=== PATIENT | male | born 1955 | race Hispanic/Latino ===

== ENCOUNTER 2018-04-05 12:58 | Inpatient (IN) | payer MEDICARE ==
--- NOTE | 2018-04-05 13:38 | C.PDOC ---
History Of Present Illness 62 y/o male with history of DM, HLD, HTN and [place] with 2 stents presents to ED with c/o cough for 7 days associated with sob and chest pressure. Patient states he saw PMD 6 days ago, was given Augmentin and Cough syrup that has not improved symptoms. Contrary to triage patient denies fever, chills, nausea, vomiting or any other complaints at this time. Time Seen by Provider: 04/05/18 13:16 Chief Complaint (Nursing): Shortness Of Breath History Per: Patient History/Exam Limitations: no limitations Onset/Duration Of Symptoms: Days Current Symptoms Are (Timing): Still Present Past Medical History Reviewed: Historical Data, Nursing Documentation, Vital Signs Vital Signs: Last Vital Signs Temp 98.5 F 04/05/18 13:02 Pulse 106 H 04/05/18 13:02 Resp 18 04/05/18 13:02 BP 135/85 04/05/18 13:02 Pulse Ox 97 04/05/18 15:45 - Medical History PMH: Asthma, HTN, Hypercholesterolemia Surgical History: Coronary Stent (2016) Family History: States: No Known Family Hx - Social History Hx Alcohol Use: No Hx Substance Use: No - Immunization History Hx Tetanus Toxoid Vaccination: Yes Hx Influenza Vaccination: Yes Hx Pneumococcal Vaccination: Yes Review Of Systems Constitutional: Negative for: Fever, Chills Cardiovascular: Positive for: Chest Pain Respiratory: Positive for: Cough, Shortness of Breath Gastrointestinal: Negative for: Nausea, Vomiting Skin: Negative for: Rash Physical Exam - Physical Exam Appears: Non-toxic, No Acute Distress Skin: Warm, Dry, No Rash Head: Atraumatic, Normacephalic Eye(s): bilateral: Normal Inspection Oral Mucosa: Moist Throat: Normal, No Erythema, No Exudate Neck: Supple Cardiovascular: Rhythm Regular Respiratory: No Rales, No Rhonchi, Wheezing Gastrointestinal/Abdominal: Soft, No Tenderness, No Guarding, No Rebound Extremity: Normal ROM, No Pedal Edema, Capillary Refill (<2 seconds) Neurological/Psych: Oriented x3, Normal Speech, Normal Cognition ED Course And Treatment - Laboratory Results Result Diagrams: 04/05/18 14:40 04/05/18 14:40 ECG: Interpreted By Me ECG Rhythm: Sinus Rhythm (nrm intervals, no st or twave abn. ) Rate From EC O2 Sat by Pulse Oximetry: 97 (RA) Pulse Ox Interpretation: Normal Medical Decision Making Medical Decision Making: Assessment: Bronchitis patient with scattered wheeze on exam, breathing treatments administered, patient states he took his medication prior to arrival. elevated blood sugar as well. Discussed with Dr. Doan and will admit to telemetry. Disposition Discussed With .: Víctor Doan Doctor Will See Patient In The: Hospital Counseled Patient/Family Regarding: Studies Performed, Diagnosis - Disposition Disposition: HOSPITALIZED Disposition Time: 15:44 Condition: FAIR - Clinical Impression Clinical Impression: Chest pain, Hyperglycemia, Bronchitis - Scribe Statement The provider has reviewed the documentation as recorded by the Karenibyahaira Judge All medical record entries made by the Campbell were at my direction and personally dictated by me. I have reviewed the chart and agree that the record accurately reflects my personal performance of the history, physical exam, medical decision making, and the department course for this patient. I have also personally directed, reviewed, and agree with the discharge instructions and disposition.
[2018-04-05] MEDS ORDERED: Albuterol-Ipratrop 3 mg / 0.5 (3 ml) UD INH STA ×2 (13:39→15:31)
--- NOTE | 2018-04-05 14:25 | RAD ---
Date of service: 04/05/2018 PROCEDURE: CHEST RADIOGRAPH, 1 VIEW HISTORY: SOB COMPARISON: 09/14/2017. FINDINGS: LUNGS: Clear. PLEURA: No pneumothorax or pleural fluid seen. CARDIOVASCULAR: No radiographic findings to suggest acute or significant cardiovascular disease. OSSEOUS STRUCTURES: No significant abnormalities. VISUALIZED UPPER ABDOMEN: Normal. OTHER FINDINGS: None. IMPRESSION: No active disease. No acute/significant interval changes.
[2018-04-05] MEDS ORDERED: Albuterol 0.083% Inhal Sol (2.5 mg/3 mL) UD ONE (14:43)
[2018-04-05 14:46] LABS: BASO # 0.1 K/uL (0.0-0.2); EOS # 0.3 K/uL (0.0-0.7); EOS % 2.8 % (0.0-4.0); HEMOGLOBIN 14.8 g/dL (12.0-18.0); LYMPH # 1.6 K/uL (1.0-4.3); LYMPH % 15.3 % (20.0-40.0); MEAN CELL VOLUME 89.2 fL (80.0-94.0); MEAN CORPUSCULAR HEMOGLOBIN 29.9 pg (27.0-31.0); MEAN CORPUSCULAR HGB CONC 33.5 g/dL (33.0-37.0); MEAN PLATELET VOLUME 7.8 fL (7.2-11.7); MONO # 0.6 K/uL (0.0-0.8); MONO % 5.8 % (0.0-10.0); NEUT % 75.1 % (50.0-75.0); RBC 4.94 Mil/uL (4.40-5.90); RED CELL DISTRIBUTION WIDTH 13.3 % (11.5-14.5); WHITE BLOOD COUNT 10.6 K/uL (4.8-10.8)
[2018-04-05 14:55] LABS: INR 1.1; PROTHROMBIN TIME 11.9 SECONDS (9.7-12.2)
[2018-04-05] MEDS ORDERED: Albuterol-Ipratrop 3 mg / 0.5 (3 ml) UD ONE ×2 (14:57→16:00)
[2018-04-05 15:10] LABS: B-TYPE NATRIURETIC PEPTIDE 279 pg/mL (0-900)
[2018-04-05 15:16] LABS: ALB/GLOB RATIO 1.2 (1.0-2.1); ALBUMIN 3.8 g/dL (3.5-5.0); ALT/SGPT 32 U/L (21-72); AST/SGOT 16 U/L (17-59); BLOOD UREA NITROGEN 15 mg/dL (9-20); CALCIUM 9.3 mg/dl (8.6-10.4); GFR AFRICAN-AMERICAN > 60; GFR NON-AFRICAN AMERICAN > 60
[2018-04-05] MEDS ORDERED: Azithromycin 500 MG in Sodium Chloride 0.9% 250 ML IVPB STA (15:32)
[2018-04-05] MEDS ORDERED: (Novolin R) Insulin Human Regular 100 units/ml vial IV ONE (15:36)
[2018-04-05] MEDS ORDERED: (Novolin R) Insulin Human Regular 100 units/ml vial ONE (16:01)
--- NOTE | 2018-04-05 16:23 | CP.PCM.HP ---
<Luis Fernando Byers - Last Filed: 04/05/18 17:33> History of Present Illness - History of Present Illness History of Present Illness: medicine note for hospitalst service CC: I have a cough and SOB. HPI 62yo male with a PMH of Asthma, HTN, DM type 2, OA, [place] in 2015 presents with a one week history of worsening cough and shortness of breath. Pt reports feeling this last . He went to his PMD Dr Osmel Sanchez for treatment where he was given promethazine syrup and Augmentin. He found no relief from these medications and felt that he needed to come to the hospital today. He was brought in by his sister. Pt says he's unable to tolerate short distaces without getting short of breath. He states clear white phlegm is produced with cough. Pt reports getting Asthma attacks similar to this every 2 months or so, more frequently during the winter. PMD: Osmel Sanchez MD [phone], [address] [facility] ROS: Pos+ dizziness, sore throat, SOB, Cough, flushing Neg- chest pain, n/v, f/c, swelling in extremities, recent travel, sick contacts, rash, back/neck pain, PMH: Asthma, HTN DM2, OA, [place] in 2005 (2 stents) PSx: none Fam Hx: Dad- chf, polycythemia, HTN Mom- HTN DM Sister- Asthma SocHx: Occasional alcohol use, lives alone in elderly home (built 1969), on disability Present on Admission - Present on Admission Any Indicators Present on Admission: No Review of Systems - Constitutional Constitutional: As Per HPI - EENT Eyes: As Per HPI Ears: As Per HPI Nose/Mouth/Throat: As Per HPI - Cardiovascular Cardiovascular: As Per HPI - Respiratory Respiratory: As Per HPI - Gastrointestinal Gastrointestinal: As Per HPI - Genitourinary Genitourinary: As Per HPI - Reproductive: Male Reproductive:Male: As Per HPI - Musculoskeletal Musculoskeletal: As Per HPI - Neurological Neurological: As Per HPI - Psychiatric Psychiatric: As Per HPI - Endocrine Endocrine: As Per HPI - Hematologic/Lymphatic Hematologic: As Per HPI Past Patient History - Past Social History Smoking Status: Never Smoked Chewing Tobacco Use: No Alcohol: Occasional Drugs: Denies Home Situation {Lives}: Alone - CARDIAC Hx Heart Attack: Yes (2016 (2 stents)) Hx Hypercholesterolemia: Yes Hx Hypertension: Yes - PULMONARY Hx Asthma: Yes - ENDOCRINE/METABOLIC Hx Endocrine Disorders: Yes Hx Diabetes Mellitus Type 2: Yes - PSYCHIATRIC Hx Substance Use: No - SURGICAL HISTORY Hx Coronary Stent: Yes (2016) Meds Allergies/Adverse Reactions: Allergies Allergy/AdvReac Type Severity Reaction Status Date / Time No Known Allergies Allergy Verified 04/05/18 13:01 Physical Exam - Constitutional Appears: In Acute Distress - Head Exam Head Exam: ATRAUMATIC, NORMAL INSPECTION - Eye Exam Eye Exam: EOMI Additional comments: L eye strabismus - ENT Exam ENT Exam: Mucous Membranes Moist - Neck Exam Neck exam: Positive for: Normal Inspection. Negative for: Lymphadenopathy, Tenderness, Thyromegaly - Respiratory Exam Respiratory Exam: Clear to Auscultation Bilateral, NORMAL BREATHING PATTERN. absent: Rales, Wheezes, Respiratory Distress, Stridor - Cardiovascular Exam Cardiovascular Exam: RRR, +S1, +S2. absent: Diastolic murmur, Systolic Murmur - GI/Abdominal Exam GI & Abdominal Exam: Normal Bowel Sounds, Soft. absent: Distended, Firm, Guarding, Tenderness Additional comments: large central body habitus - Extremities Exam Extremities exam: Positive for: normal inspection. Negative for: calf tenderness, pedal edema, tenderness, pedal pulses present - Back Exam Back exam: NORMAL INSPECTION - Neurological Exam Neurological exam: Alert, CN II-XII Intact, Oriented x3 - Psychiatric Exam Psychiatric exam: Anxious Additional comments: cognitive deficits noted, sister reports history of mental disability - Skin Skin Exam: Dry, Warm Additional comments: flushed Results - Vital Signs Recent Vital Signs: Last Vital Signs Temp 98.5 F 04/05/18 13:02 Pulse 106 H 04/05/18 13:02 Resp 18 04/05/18 13:02 BP 135/85 04/05/18 13:02 Pulse Ox 97 04/05/18 15:59 - Labs Result Diagrams: 04/05/18 14:40 04/05/18 14:40 Labs: Laboratory Results - last 24 hr 04/05/18 04/05/18 04/05/18 14:40 14:40 14:40 WBC 10.6 RBC 4.94 Hgb 14.8 Hct 44.1 MCV 89.2 D MCH 29.9 MCHC 33.5 RDW 13.3 Plt Count 299 MPV 7.8 Neut % (Auto) 75.1 H Lymph % (Auto) 15.3 L Ulster % (Auto) 5.8 Eos % (Auto) 2.8 Baso % (Auto) 1.0 Neut # (Auto) 8.0 H Lymph # (Auto) 1.6 [place] # (Auto) 0.6 Eos # (Auto) 0.3 Baso # (Auto) 0.1 PT 11.9 INR 1.1 APTT 29 Sodium 132 Potassium 5.2 Chloride 92 L Carbon Dioxide 27 Anion Gap 18 BUN 15 Creatinine 1.0 Est GFR ( Amer) > 60 Est GFR (Non-Af Amer) > 60 Random Glucose 721 H* D Calcium 9.3 Total Bilirubin 0.7 AST 16 L ALT 32 Alkaline Phosphatase 106 Troponin I < 0.0120 NT-Pro-B Natriuret Pep 279 Total Protein 7.0 Albumin 3.8 Globulin 3.1 Albumin/Globulin Ratio 1.2 Assessment & Plan - Assessment and Plan (Free Text) Assessment: 62M presenting with one week of worsening coughs and SOB. Plan: Asthma: -solumedrol 40IV q6hrs -duonebs rQ4 -Spiriva 10 daily -Advair 250/50 2 puffs BID -3L O2 -Rocephin 1g IV q12 -Azithromycin 500mg IV daily -serum IgE SOB: -Likely due to asthma -r/o infection: CBC ordered wbc 10 -r/o cardiac causes: trop x1 neg, EKG-NSR -3L O2 -consider CT chest and Echo if indicated\ -f/u trops -CBC, CMP f/u morning DM type 2 -Insulin Sliding Scale: High protocol -Levemir 20 units -Metformin PO BID -ASA 81mg PO daily -coreg 3.125mg PO daily -Lisinopril 5mg PO daily -Accuchecks HS HTN -Lisinopril 5mg PO BID -coreg 3.125 PO BID -Crestor 10mg PO -Monitor BP Hx of [place] -Plavix 75mg PO daily -ASA 81mg PO daily -Trops neg x1 f/u tmrw next trop PPX: -Plavix 75 mg PO daily -ASA 81mg PO daily -Hypoglycemic protocol <OlimpiaPeter H - Last Filed: 04/05/18 17:58> Results - Vital Signs Recent Vital Signs: Last Vital Signs Temp 98.8 F 04/05/18 17:30 Pulse 86 04/05/18 17:30 Resp 20 04/05/18 17:30 BP 142/89 04/05/18 17:30 Pulse Ox 94 L 04/05/18 17:30 - Labs Result Diagrams: 04/05/18 14:40 04/05/18 14:40 Labs: Laboratory Results - last 24 hr 04/05/18 04/05/18 04/05/18 14:40 14:40 14:40 WBC 10.6 RBC 4.94 Hgb 14.8 Hct 44.1 MCV 89.2 D MCH 29.9 MCHC 33.5 RDW 13.3 Plt Count 299 MPV 7.8 Neut % (Auto) 75.1 H Lymph % (Auto) 15.3 L Ul[place] % (Auto) 5.8 Eos % (Auto) 2.8 Baso % (Auto) 1.0 Neut # (Auto) 8.0 H Lymph # (Auto) 1.6 [place] # (Auto) 0.6 Eos # (Auto) 0.3 Baso # (Auto) 0.1 PT 11.9 INR 1.1 APTT 29 Sodium 132 Potassium 5.2 Chloride 92 L Carbon Dioxide 27 Anion Gap 18 BUN 15 Creatinine 1.0 Est GFR ( Amer) > 60 Est GFR (Non-Af Amer) > 60 POC Glucose (mg/dL) Random Glucose 721 H* D Calcium 9.3 Total Bilirubin 0.7 AST 16 L ALT 32 Alkaline Phosphatase 106 Troponin I < 0.0120 NT-Pro-B Natriuret Pep 279 Total Protein 7.0 Albumin 3.8 Globulin 3.1 Albumin/Globulin Ratio 1.2 04/05/18 17:00 WBC RBC Hgb Hct MCV MCH MCHC RDW Plt Count MPV Neut % (Auto) Lymph % (Auto) Ul[place] % (Auto) Eos % (Auto) Baso % (Auto) Neut # (Auto) Lymph # (Auto) [place] # (Auto) Eos # (Auto) Baso # (Auto) PT INR APTT Sodium Potassium Chloride Carbon Dioxide Anion Gap BUN Creatinine Est GFR ( Amer) Est GFR (Non-Af Amer) POC Glucose (mg/dL) 497 H* Random Glucose Calcium Total Bilirubin AST ALT Alkaline Phosphatase Troponin I NT-Pro-B Natriuret Pep Total Protein Albumin Globulin Albumin/Globulin Ratio Attending/Attestation - Attestation I have personally seen and examined this patient.: Yes I have fully participated in the care of the patient.: Yes I have reviewed all pertinent clinical information: Yes Notes (Text): 04/05/18 17:50 Medical attending: Patient was seen and examined by me. Agree with the above note by the resident The patient was not in acute distress. He was able to speak to us in full sentences and not using accessory muscles. The patient had family member present at bed side - the patient was ok with this. At this time will add on IV solumedrol as well as Advair and also Spiriva. Reviewed the CXRAY and will hold off on CT scan of chest or echo. We will re- evaluate the patient tommorow and see how he does There is also a history of CAD with two stents so will continue with statin, ASA , and also Plavix as well. The patient explains he was recently given Augmentin by PMD, for now will do IV rocpehin and IV azithromycin. Probably the coughing is all asthma related thank you Víctor Doan
[2018-04-05] MEDS: MethylPREDNISolone 40 mg Vial IV SCH (19:43)
[2018-04-05] MEDS: Albuterol-Ipratrop 3 mg / 0.5 (3 ml) UD INH SCH (20:23)
[2018-04-05] MEDS: Fluticasone-Salmeterol 250-50mcg Diskus INH SCH (20:23)
[2018-04-05] MEDS: (Novolin R) Insulin Human Regular 100 units/ml vial SC SCH (21:43)
[2018-04-05] MEDS ORDERED: Insulin Detemir 100 units/ml Vial (Levemir) SC SCH (22:00)
[2018-04-05 22:56] LABS: URINE BILIRUBIN NEGATIVE (NEGATIVE); URINE BLOOD NEGATIVE (NEGATIVE); URINE CLARITY Clear (Clear); URINE COLOR Straw (YELLOW); URINE GLUCOSE (UA) 3+ mg/dL (Normal); URINE LEUKOCYTE ESTERASE NEG Leu/uL (Negative); URINE PROTEIN NEGATIVE (NEGATIVE); URINE UROBILINOGEN NORMAL mg/dL (0.2-1.0)
[2018-04-06] MEDS: Albuterol-Ipratrop 3 mg / 0.5 (3 ml) UD INH SCH ×6 (00:11→19:58)
[2018-04-06] MEDS: MethylPREDNISolone 40 mg Vial IV SCH ×4 (00:49→17:57)
[2018-04-06] MEDS: (Novolin R) Insulin Human Regular 100 units/ml vial SC SCH ×5 (02:30→22:30)
[2018-04-06 08:00] LABS: HEMOGLOBIN 14.3 g/dL (12.0-18.0); MEAN CELL VOLUME 87.3 fL (80.0-94.0); MEAN CORPUSCULAR HEMOGLOBIN 30.5 pg (27.0-31.0); MEAN CORPUSCULAR HGB CONC 34.9 g/dL (33.0-37.0); MEAN PLATELET VOLUME 7.6 fL (7.2-11.7); RBC 4.68 Mil/uL (4.40-5.90); RED CELL DISTRIBUTION WIDTH 13.4 % (11.5-14.5); WHITE BLOOD COUNT 14.6 K/uL (4.8-10.8)
[2018-04-06] MEDS: Fluticasone-Salmeterol 250-50mcg Diskus INH SCH ×2 (08:33→19:58)
[2018-04-06 08:34] LABS: ALB/GLOB RATIO 1.4 (1.0-2.1); ALT/SGPT 30 U/L (21-72); AST/SGOT 13 U/L (17-59); BLOOD UREA NITROGEN 23 mg/dL (9-20); CALCIUM 9.8 mg/dl (8.6-10.4); GFR AFRICAN-AMERICAN > 60; GFR NON-AFRICAN AMERICAN > 60
[2018-04-06] MEDS: Tiotropium 18 mcg Cap For Inhalation INH SCH (08:34)
[2018-04-06] MEDS: Enoxaparin 40 mg Syringe SC SCH (09:57)
[2018-04-06] MEDS ORDERED: Insulin Detemir 100 units/ml Vial (Levemir) SC SCH (10:00)
--- NOTE | 2018-04-06 16:55 | CT ---
Date of service: 04/06/2018 PROCEDURE: CT Chest without contrast HISTORY: SOB COMPARISON: None available. TECHNIQUE: Contiguous axial images were obtained through the chest without intravenous contrast enhancement. Sagittal and coronal reconstructions were performed. Radiation dose (DLP): 826.50 mGy-cm. This CT exam was performed using one or more of the following dose reduction techniques: Automated exposure control, adjustment of the mA and/or kV according to patient size, and/or use of iterative reconstruction technique. FINDINGS: LUNGS: Clear lungs. Visualized airway clear. MEDIASTINUM: Unremarkable thoracic aorta. No aneurysm. Normal sized heart. Coronary arterial calcification noted. Main pulmonary artery unremarkable. No vascular congestion. No lymphadenopathy. PLEURA: No pleural fluid. No pneumothorax. BONES: No fracture. No destructive lesion. UPPER ABDOMEN: Fatty infiltration of the liver. Punctate calcification in the right hepatic lobe likely old calcified granuloma. OTHER FINDINGS: None. IMPRESSION: No pulmonary infiltrate or gross evidence of interstitial lung disease. No pleural effusion. Incidental fatty infiltration of the liver. No additional abnormality.
[2018-04-06] MEDS: (Novolog) Insulin Aspart, Recombinant 100 u/ml 10 ml vial SC SCH (17:30)
--- NOTE | 2018-04-06 17:36 | CP.PCM.PN ---
<Gissell Carlton - Last Filed: 04/06/18 17:55> Subjective - Date & Time of Evaluation Date of Evaluation: 04/06/18 Time of Evaluation: 11:30 - Subjective Subjective: PGY-1 Gissell Carlton D.O. Medicine progress note for Dr. Víctor Doan's service: Patient was seen and examined. His home school teacher is at bedside and patient consents to discussing his condition with her present. Patient states that he feels "a little bit" better. His aide thinks he is presenting about the same and is not as his baseline as far as breathing. The patient is utilizing O2 via NC at 2L. He rarely uses it at home. He is able to walk in the hallways without significant shortness of breath and actually reports feeling better while walking. Patient denies fevers, chills, chest pain. He has a mild nonproductive cough. He has some swelling of his LEs b/l. Objective - Vital Signs/Intake and Output Vital Signs (last 24 hours): Temp Pulse Resp BP Pulse Ox 98.3 F 75 20 108/65 100 04/06/18 15:45 04/06/18 15:45 04/06/18 15:45 04/06/18 15:45 04/06/18 15:45 Intake and Output: 04/06/18 04/06/18 06:59 18:59 Intake Total 888 Output Total 1750 Balance -862 - Medications Medications: Current Medications Albuterol/Ipratropium (Duoneb 3 Mg/0.5 Mg (3 Ml) Ud) 3 ml INH RQ4 [facility] Last Admin: 04/06/18 16:44 Dose: 3 ml Aspirin (Aspirin Chewable) 81 mg PO DAILY [facility] Last Admin: 04/06/18 09:56 Dose: 81 mg Carvedilol (Coreg) 3.125 mg PO BID [facility] Last Admin: 04/06/18 09:56 Dose: 3.125 mg Clopidogrel Bisulfate (Plavix) 75 mg PO DAILY [facility] Last Admin: 04/06/18 09:56 Dose: 75 mg Enoxaparin Sodium (Lovenox) 40 mg SC DAILY [facility] Last Admin: 04/06/18 09:57 Dose: 40 mg Famotidine (Pepcid) 20 mg PO Q12H [facility] Furosemide (Lasix) 20 mg PO DAILY [facility] Last Admin: 04/06/18 14:58 Dose: 20 mg Ceftriaxone Sodium 1 gm/ (Sodium Chloride) 100 mls @ 100 mls/hr IVPB Q12H [facility] PRN Reason: Protocol Last Admin: 04/06/18 02:30 Dose: 100 mls/hr Insulin Aspart (Novolog) 10 unit SC TIDAC [facility] Insulin Detemir (Levemir) 30 unit SC AMHS [facility] Insulin Human Regular (Novolin R) 0 unit SC ACHS [facility] PRN Reason: Protocol Last Admin: 04/06/18 12:10 Dose: 12 units Lisinopril (Zestril) 5 mg PO DAILY [facility] Last Admin: 04/06/18 09:56 Dose: 5 mg Metformin HCl (Glucophage) 1,000 mg PO BIDCC [facility] Methylprednisolone (Solu-Medrol) 40 mg IV Q6 [facility] Last Admin: 04/06/18 11:56 Dose: 40 mg Rosuvastatin Calcium (Crestor) 10 mg PO HS [facility] Last Admin: 04/05/18 21:42 Dose: 10 mg Fluticasone/Salmeterol (Advair Diskus 250/50) 2 puff INH RQ12 [facility] Last Admin: 04/06/18 08:33 Dose: 2 puff Tiotropium [place] (Spiriva) 18 mcg INH RQ24 [facility] Last Admin: 04/06/18 08:34 Dose: 18 mcg - Labs Labs: 04/06/18 07:49 04/06/18 07:49 PT 11.9 SECONDS (9.7-12.2) 04/05/18 14:40 INR 1.1 04/05/18 14:40 APTT 29 SECONDS (21-34) 04/05/18 14:40 - Constitutional Appears: Well, No Acute Distress, Older Than Stated Age - Head Exam Head Exam: ATRAUMATIC, NORMAL INSPECTION, NORMOCEPHALIC - Eye Exam Eye Exam: Normal appearance Additional comments: strabismus - ENT Exam ENT Exam: Mucous Membranes Moist, Normal Exam - Neck Exam Neck Exam: Normal Inspection. absent: Lymphadenopathy - Respiratory Exam Respiratory Exam: Clear to Ausculation Bilateral, NORMAL BREATHING PATTERN. absent: Rhonchi, Wheezes, Respiratory Distress - Cardiovascular Exam Cardiovascular Exam: REGULAR RHYTHM, +S1, +S2. absent: Murmur - GI/Abdominal Exam GI & Abdominal Exam: Soft, Normal Bowel Sounds. absent: Tenderness Additional comments: obese - Rectal Exam Rectal Exam: Deferred - Extremities Exam Extremities Exam: Normal Inspection, Pedal Edema (mild b/l) - Neurological Exam Neurological Exam: Alert, Awake, Normal Gait, Oriented x3 - Psychiatric Exam Psychiatric exam: Flat Affect - Skin Skin Exam: Dry, Intact, Normal Color, Warm Assessment and Plan - Assessment and Plan (Free Text) Assessment: Patient is a 62 yo male with a h/o asthma, T2DM, HTN, [place] in 2016 who presented with cough and SOB. He received Augmentin and promethazine as an outpatient, but these did not relieve his symptoms. Thus far, no specific cause , including infection, has been identified; suspect asthma exacerbation. Plan: Asthma, chronic- suspect acute exacerbation -Solumedrol 40IV q6hrs -Duonebs rQ4 -Spiriva 10 daily -Advair 250/50 2 puffs BID -O2 NC prn- currently at 2L -F/u serum IgE SOB, acute, stable- likely due to asthma -r/o infection: Wbc 10->14.6 (suspect 2/2 steroid), CXR x2 clear -r/o cardiac causes: trop x2 neg, EKG-NSR -O2 as needed -Rocephin 1g IV q12 -CT chest negative -F/u echo -F/u blood Cx (negative >24hrs) -CBC, CMP in AM GERD- could be contributing to respiratory symptoms -Start Protonix 40 mg PO daily DM type 2, chronic -Insulin Sliding Scale Regular: High protocol -Start Novolog 10u TIDAC -Increase Levemir to 40 units BID -Increase Metformin 1000mg PO BID -ASA 81mg PO daily -Coreg 3.125mg PO daily -Lisinopril 5mg PO daily -Accuchecks -Hypoglycemic protocol HTN -Vitals q4hrs -Lisinopril 5mg PO daily -Coreg 3.125 PO BID -Crestor 10mg PO Hx of [place] (2015) -Plavix 75mg PO daily -ASA 81mg PO daily -Trops neg x1 f/u tmrw next trop Case management consult for home health aide IVF: not indicated VTE ppx: Lovenox 40 mg SC daily GI ppx: Protonix 40 mg PO daily Diet: Sumpto (low carb) Code status: full code <Víctor Doan H - Last Filed: 04/06/18 19:13> Objective - Vital Signs/Intake and Output Vital Signs (last 24 hours): Temp Pulse Resp BP Pulse Ox 98.3 F 75 20 108/65 100 04/06/18 15:45 04/06/18 15:45 04/06/18 15:45 04/06/18 15:45 04/06/18 15:45 - Medications Medications: Current Medications Albuterol/Ipratropium (Duoneb 3 Mg/0.5 Mg (3 Ml) Ud) 3 ml INH RQ4 [facility] Last Admin: 04/06/18 16:44 Dose: 3 ml Aspirin (Aspirin Chewable) 81 mg PO DAILY [facility] Last Admin: 04/06/18 09:56 Dose: 81 mg Carvedilol (Coreg) 3.125 mg PO BID [facility] Last Admin: 04/06/18 17:58 Dose: 3.125 mg Clopidogrel Bisulfate (Plavix) 75 mg PO DAILY [facility] Last Admin: 04/06/18 09:56 Dose: 75 mg Enoxaparin Sodium (Lovenox) 40 mg SC DAILY [facility] Last Admin: 04/06/18 09:57 Dose: 40 mg Famotidine (Pepcid) 20 mg PO Q12H [facility] Furosemide (Lasix) 20 mg PO DAILY [facility] Last Admin: 04/06/18 14:58 Dose: 20 mg Ceftriaxone Sodium 1 gm/ (Sodium Chloride) 100 mls @ 100 mls/hr IVPB Q12H [facility] PRN Reason: Protocol Last Admin: 04/06/18 16:30 Dose: 100 mls/hr Insulin Aspart (Novolog) 10 unit SC TIDAC [facility] Last Admin: 04/06/18 17:30 Dose: 10 units Insulin Detemir (Levemir) 30 unit SC AMHS [facility] Insulin Human Regular (Novolin R) 0 unit SC ACHS [facility] PRN Reason: Protocol Last Admin: 04/06/18 17:30 Dose: 12 units Lisinopril (Zestril) 5 mg PO DAILY [facility] Last Admin: 04/06/18 09:56 Dose: 5 mg Metformin HCl (Glucophage) 1,000 mg PO BIDCC [facility] Last Admin: 04/06/18 17:58 Dose: 1,000 mg Methylprednisolone (Solu-Medrol) 40 mg IV Q6 [facility] Last Admin: 08/10/18 17:57 Dose: 40 mg Rosuvastatin Calcium (Crestor) 10 mg PO HS [facility] Last Admin: 04/05/18 21:42 Dose: 10 mg Fluticasone/Salmeterol (Advair Diskus 250/50) 2 puff INH RQ12 [place] Last Admin: 04/06/18 08:33 Dose: 2 puff Tiotropium [place] (Spiriva) 18 mcg INH RQ24 [place] Last Admin: 04/06/18 08:34 Dose: 18 mcg - Labs Labs: 04/06/18 07:49 04/06/18 07:49 PT 11.9 SECONDS (9.7-12.2) 04/05/18 14:40 INR 1.1 04/05/18 14:40 APTT 29 SECONDS (21-34) 04/05/18 14:40 Attending/Attestation - Attestation I have personally seen and examined this patient.: Yes I have fully participated in the care of the patient.: Yes I have reviewed all pertinent clinical information, including history, physical exam and plan: Yes Notes (Text): 04/06/18 19:07 Medical attending: Patient was seen and examined by me. Agree with the above note by the resident. Patient's family member and caregiver was at bedside as well. Patient reported that while at rest his breathing was somewhat better than yesterday when he came to the ER. We also had the patient walk with us on physical exam and he was able to go to the telemetry station and back. He explained that previously he would not have been able to do this without developing signifigant GUZMAN. So at this time we are continuing with the IV solumedrol, nebulizers, advair two puffs BID as he may likley be having asthma exaxcerbation again We are going to check a CT of the chest - if this is clear then probably can stop the IV abx. Also he does have a history of two stents and will check a 2 decho. He did not have any heart mumurs yesterday or today but considering his cardiac history we need to see what EF is and EDV are or if he may have pulmonary HTN for example Sugars are very high on accucheks - probably made worse because of the IV solumedrol. We have increased his long acting as well as started on Novolog ACHS as well as the R-ISS. Continue to [facility] and make adjustments Thank you Víctor Doan
[2018-04-06] MEDS: Insulin Detemir 100 units/ml Vial (Levemir) SC SCH (22:30)
[2018-04-07] MEDS: MethylPREDNISolone 40 mg Vial IV SCH ×5 (00:08→23:17)
[2018-04-07] MEDS: Albuterol-Ipratrop 3 mg / 0.5 (3 ml) UD INH SCH ×7 (00:55→23:43)
[2018-04-07] MEDS: Fluticasone-Salmeterol 250-50mcg Diskus INH SCH ×2 (07:45→19:43)
[2018-04-07] MEDS: Tiotropium 18 mcg Cap For Inhalation INH SCH (07:45)
--- NOTE | 2018-04-07 08:19 | CP.PCM.PN ---
Subjective - Date & Time of Evaluation Date of Evaluation: 04/07/18 Time of Evaluation: 08:17 - Subjective Subjective: Pt seen and examined at bedside. Pt has no complains overnight. Pt denies and chest pain, SOB, n/v, f/c or asthma attacks Objective - Vital Signs/Intake and Output Vital Signs (last 24 hours): Temp Pulse Resp BP Pulse Ox 98.0 F 75 20 107/66 98 04/07/18 07:20 04/07/18 07:33 04/07/18 07:20 04/07/18 07:20 04/07/18 07:20 Intake and Output: 04/07/18 04/07/18 06:59 18:59 Intake Total 300 Output Total 1250 Balance -950 - Medications Medications: Current Medications Albuterol/Ipratropium (Duoneb 3 Mg/0.5 Mg (3 Ml) Ud) 3 ml INH RQ4 [facility] Last Admin: 04/07/18 07:45 Dose: 3 ml Aspirin (Aspirin Chewable) 81 mg PO DAILY [facility] Last Admin: 04/06/18 09:56 Dose: 81 mg Carvedilol (Coreg) 3.125 mg PO BID [facility] Last Admin: 04/06/18 17:58 Dose: 3.125 mg Clopidogrel Bisulfate (Plavix) 75 mg PO DAILY [facility] Last Admin: 04/06/18 09:56 Dose: 75 mg Enoxaparin Sodium (Lovenox) 40 mg SC DAILY [facility] Last Admin: 04/06/18 09:57 Dose: 40 mg Famotidine (Pepcid) 20 mg PO Q12H [facility] Last Admin: 04/07/18 05:27 Dose: 20 mg Furosemide (Lasix) 20 mg PO DAILY [facility] Last Admin: 04/06/18 14:58 Dose: 20 mg Ceftriaxone Sodium 1 gm/ (Sodium Chloride) 100 mls @ 100 mls/hr IVPB Q12H [facility] PRN Reason: Protocol Last Admin: 04/07/18 02:52 Dose: 100 mls/hr Insulin Aspart (Novolog) 10 unit SC TIDAC [facility] Last Admin: 04/06/18 17:30 Dose: 10 units Insulin Detemir (Levemir) 30 unit SC AMHS [facility] Last Admin: 04/06/18 22:30 Dose: 30 units Insulin Human Regular (Novolin R) 0 unit SC ACHS [facility] PRN Reason: Protocol Last Admin: 04/06/18 22:30 Dose: 3 units Lisinopril (Zestril) 5 mg PO DAILY [facility] Last Admin: 04/06/18 09:56 Dose: 5 mg Metformin HCl (Glucophage) 1,000 mg PO BIDCC [facility] Last Admin: 04/06/18 17:58 Dose: 1,000 mg Methylprednisolone (Solu-Medrol) 40 mg IV Q6 [facility] Last Admin: 04/07/18 05:26 Dose: 40 mg Rosuvastatin Calcium (Crestor) 10 mg PO HS [facility] Last Admin: 04/06/18 22:30 Dose: 10 mg Fluticasone/Salmeterol (Advair Diskus 250/50) 2 puff INH RQ12 [facility] Last Admin: 04/07/18 07:45 Dose: 1 puff Tiotropium [place] (Spiriva) 18 mcg INH RQ24 [facility] Last Admin: 04/07/18 07:45 Dose: 18 mcg - Labs Labs: 04/06/18 07:49 04/06/18 07:49 PT 11.9 SECONDS (9.7-12.2) 04/05/18 14:40 INR 1.1 04/05/18 14:40 APTT 29 SECONDS (21-34) 04/05/18 14:40 Assessment and Plan - Assessment and Plan (Free Text) Assessment: - Constitutional Appears: Well, No Acute Distress, Older Than Stated Age - Head Exam Head Exam: ATRAUMATIC, NORMAL INSPECTION, NORMOCEPHALIC - Eye Exam Eye Exam: Normal appearance Additional comments: strabismus - ENT Exam ENT Exam: Mucous Membranes Moist, Normal Exam - Neck Exam Neck Exam: Normal Inspection. absent: Lymphadenopathy - Respiratory Exam Respiratory Exam: Clear to Ausculation Bilateral, NORMAL BREATHING PATTERN. absent: Rhonchi, Wheezes, Respiratory Distress - Cardiovascular Exam Cardiovascular Exam: REGULAR RHYTHM, +S1, +S2. absent: Murmur - GI/Abdominal Exam GI & Abdominal Exam: Soft, Normal Bowel Sounds. absent: Tenderness Additional comments: obese - Rectal Exam Rectal Exam: Deferred - Extremities Exam Extremities Exam: Normal Inspection, Pedal Edema (mild b/l) - Neurological Exam Neurological Exam: Alert, Awake, Normal Gait, Oriented x3 - Psychiatric Exam Psychiatric exam: Flat Affect - Skin Skin Exam: Dry, Intact, Normal Color, Warm Assessment and Plan - Assessment and Plan (Free Text) Assessment: Patient is a 62 yo male with a h/o asthma, T2DM, HTN, [place] in 2016 who presented with cough and SOB. He received Augmentin and promethazine as an outpatient, but these did not relieve his symptoms. Thus far, no specific cause , including infection, has been identified; suspect asthma exacerbation. Plan: Asthma, chronic- suspect acute exacerbation -Solumedrol 40IV q6hrs -Duonebs rQ4 -Spiriva 10 daily -Advair 250/50 2 puffs BID -O2 NC prn- currently at 2L -F/u serum IgE SOB, acute, stable- likely due to asthma -r/o infection: Wbc 10->14.6 (suspect 2/2 steroid), CXR x2 clear -r/o cardiac causes: trop x2 neg, EKG-NSR -O2 as needed -Rocephin 1g IV q12 -CT chest negative -F/u echo -F/u blood Cx (negative >24hrs) -CBC, CMP in AM GERD- could be contributing to respiratory symptoms -Start Protonix 40 mg PO daily DM type 2, chronic -Insulin Sliding Scale Regular: High protocol -Start Novolog 10u TIDAC -Increase Levemir to 40 units BID -Increase Metformin 1000mg PO BID -ASA 81mg PO daily -Coreg 3.125mg PO daily -Lisinopril 5mg PO daily -Accuchecks -Hypoglycemic protocol HTN -Vitals q4hrs -Lisinopril 5mg PO daily -Coreg 3.125 PO BID -Crestor 10mg PO Hx of [place] (2015) -Plavix 75mg PO daily -ASA 81mg PO daily -Trops neg x1 f/u tmrw next trop Case management consult for home health aide IVF: not indicated VTE ppx: Lovenox 40 mg SC daily GI ppx: Protonix 40 mg PO daily Diet: [employer] (low carb) Code status: full code
[2018-04-07] MEDS: (Novolog) Insulin Aspart, Recombinant 100 u/ml 10 ml vial SC SCH ×3 (08:22→17:42)
[2018-04-07] MEDS: (Novolin R) Insulin Human Regular 100 units/ml vial SC SCH ×4 (08:22→22:00)
[2018-04-07 08:54] LABS: BASO # 0.1 K/uL (0.0-0.2); BASO % 0.3 % (0.0-2.0); HEMOGLOBIN 14.1 g/dL (12.0-18.0); LYMPH # 1.4 K/uL (1.0-4.3); LYMPH % 7.4 % (20.0-40.0); MEAN CELL VOLUME 87.8 fL (80.0-94.0); MEAN CORPUSCULAR HEMOGLOBIN 29.9 pg (27.0-31.0); MEAN PLATELET VOLUME 7.9 fL (7.2-11.7); MONO # 0.4 K/uL (0.0-0.8); MONO % 2.1 % (0.0-10.0); NEUT # 16.7 K/uL (1.8-7.0); NEUT % 90.2 % (50.0-75.0); PLATELET COUNT 375 K/uL (130-400); RBC 4.74 Mil/uL (4.40-5.90); RED CELL DISTRIBUTION WIDTH 13.7 % (11.5-14.5); WHITE BLOOD COUNT 18.5 K/uL (4.8-10.8)
[2018-04-07 09:27] LABS: ALB/GLOB RATIO 1.4 (1.0-2.1); ALBUMIN 4.2 g/dL (3.5-5.0); ALT/SGPT 32 U/L (21-72); AST/SGOT 18 U/L (17-59); BLOOD UREA NITROGEN 29 mg/dL (9-20); CALCIUM 9.3 mg/dl (8.6-10.4); GFR AFRICAN-AMERICAN > 60; GFR NON-AFRICAN AMERICAN > 60
[2018-04-07 09:42] LABS: BANDS 2 % (0-2); EOSINOPHIL 1 % (0-4); LYMPHOCYTE 7 % (20-40); MONOCYTE 1 % (0-10); NEUTROPHIL 89 % (50-75); PLATELET ESTIMATE NORMAL (NORMAL); TOTAL CELLS COUNTED 100
[2018-04-07 09:43] LABS: ANISOCYTOSIS SLIGHT; POLYCHROMIC SLIGHT
[2018-04-07] MEDS: Insulin Detemir 100 units/ml Vial (Levemir) SC SCH ×2 (10:01→22:01)
[2018-04-07] MEDS: Enoxaparin 40 mg Syringe SC SCH (10:01)
--- NOTE | 2018-04-07 13:07 | CARD ---
APPROVED REPORT Date of service: 04/05/2018 EKG Measurement Heart [id number] <Conclusion> Normal sinus rhythm Normal ECG
--- NOTE | 2018-04-07 17:04 | CARD ---
APPROVED REPORT Date of service: 04/07/2018 EXAM: Two-dimensional and M-mode echocardiogram with Doppler and color Doppler. Other Information Quality : GoodRhythm : NSR INDICATION Dyspnea Chest Pain RISK FACTORS Hyperlipidemia M-Mode DIMENSIONS RVDd1.25 (2.1-3.2cm)Left Atrium (MM)4.00 (2.5-4.0cm) IVSd0.98 (0.7-1.1cm)Aortic Root3.59 (2.2-3.7cm) LVDd5.50 (4.0-5.6cm)Aortic Cusp Exc.1.60 (1.5-2.0cm) PWd1.02 (0.7-1.1cm)FS (%) 22 % LVDs3.50 (2.0-3.8cm)LVEF (%)60 (>50%) Aortic Valve AoV Peak Wfbqhjjs079.5cm/Amita Peak GR.11mmHg Mitral Valve MV E Ipgoiibj20.9cm/sMV A Nfimozjn63.5cm/sE/A ratio1.2 TDI E/Lateral E'0.0E/Medial E'0.0 Tricuspid Valve TR Peak Oqulkrgc978zj/sTR Peak Gr.00rjBzPPFP27luEm LEFT VENTRICLE There is normal left ventricular wall thickness. The left ventricular function is normal. The left ventricular ejection fraction is within the normal range. There is normal LV segmental wall motion. The left ventricular diastolic function is normal. ATRIA The left atrium size is normal. The right atrium size is normal. AORTIC VALVE The aortic valve shows some mild focal sclerosis but opens well. No aortic regurgitation is present. MITRAL VALVE The mitral valve is normal in structure. There is no mitral valve regurgitation noted. TRICUSPID VALVE The tricuspid valve is normal in structure. There is trace tricuspid regurgitation. PULMONIC VALVE The pulmonic valve is not well visualized. GREAT VESSELS The aortic root is normal in size. The aortic root displays mild sclerocalcific changes. The IVC is normal in size and collapses >50% with inspiration. PERICARDIAL EFFUSION There is no pericardial effusion. <Conclusion> TECHNICALLY DIFFICULT STUDY DUE TO POOR ACOUSTIC WINDOWS - SOME IMAGES ARE OFF AXIS Normal bi-ventricular function. The aortic root displays mild sclerocalcific changes. No gross valvular abnormality or pericardial effusion.
[2018-04-08] MEDS: Albuterol-Ipratrop 3 mg / 0.5 (3 ml) UD INH SCH ×4 (03:40→16:02)
[2018-04-08] MEDS: MethylPREDNISolone 40 mg Vial IV SCH ×2 (06:00→12:17)
[2018-04-08] MEDS: Tiotropium 18 mcg Cap For Inhalation INH SCH (07:23)
[2018-04-08] MEDS: Fluticasone-Salmeterol 250-50mcg Diskus INH SCH (07:24)
[2018-04-08 08:05] LABS: BASO % 0.1 % (0.0-2.0); HEMOGLOBIN 13.4 g/dL (12.0-18.0); LYMPH # 1.2 K/uL (1.0-4.3); LYMPH % 7.7 % (20.0-40.0); MEAN CELL VOLUME 87.9 fL (80.0-94.0); MEAN CORPUSCULAR HEMOGLOBIN 29.9 pg (27.0-31.0); MEAN PLATELET VOLUME 7.9 fL (7.2-11.7); MONO # 0.5 K/uL (0.0-0.8); NEUT # 13.7 K/uL (1.8-7.0); NEUT % 89.2 % (50.0-75.0); PLATELET COUNT 335 K/uL (130-400); RBC 4.47 Mil/uL (4.40-5.90); RED CELL DISTRIBUTION WIDTH 13.5 % (11.5-14.5); WHITE BLOOD COUNT 15.4 K/uL (4.8-10.8)
[2018-04-08 08:15] LABS: ALB/GLOB RATIO 1.3 (1.0-2.1); ALBUMIN 3.6 g/dL (3.5-5.0); ALT/SGPT 21 U/L (21-72); AST/SGOT 11 U/L (17-59); BLOOD UREA NITROGEN 31 mg/dL (9-20); CALCIUM 9.3 mg/dl (8.6-10.4); GFR AFRICAN-AMERICAN > 60; GFR NON-AFRICAN AMERICAN > 60
[2018-04-08] MEDS: (Novolin R) Insulin Human Regular 100 units/ml vial SC SCH ×2 (08:20→12:17)
[2018-04-08] MEDS: (Novolog) Insulin Aspart, Recombinant 100 u/ml 10 ml vial SC SCH ×2 (08:20→12:17)
[2018-04-08] MEDS: Enoxaparin 40 mg Syringe SC SCH (09:14)
[2018-04-08 09:17] LABS: BANDS 2 % (0-2); LYMPHOCYTE 8 % (20-40); MONOCYTE 4 % (0-10); NEUTROPHIL 86 % (50-75); PLATELET ESTIMATE NORMAL (NORMAL); TOTAL CELLS COUNTED 100
[2018-04-08 09:18] LABS: ANISOCYTOSIS SLIGHT; POLYCHROMIC SLIGHT
[2018-04-08 09:19] LABS: PLATELET CLUMPS PRESENT
--- NOTE | 2018-04-08 10:22 | CP.PCM.PN ---
Subjective - Date & Time of Evaluation Date of Evaluation: 04/08/18 Time of Evaluation: 10:19 - Subjective Subjective: PGY-1 Medicine Progress Note for Dr. Larose's service Patient seen and examined at bedside. Patient reports ongoing cough that is non productive. Patient denies chest pain, sob, n/v, constipation or diarrhea, dysuria, headaches, or dizziness. Objective - Vital Signs/Intake and Output Vital Signs (last 24 hours): Temp Pulse Resp BP Pulse Ox 98 F 80 20 123/74 97 04/07/18 23:45 04/08/18 07:28 04/07/18 23:45 04/08/18 09:13 04/07/18 23:45 Intake and Output: 04/08/18 04/08/18 06:59 18:59 Intake Total 650 Output Total 425 Balance 225 - Medications Medications: Current Medications Albuterol/Ipratropium (Duoneb 3 Mg/0.5 Mg (3 Ml) Ud) 3 ml INH RQ4 [facility] Last Admin: 04/08/18 07:23 Dose: 3 ml Aspirin (Aspirin Chewable) 81 mg PO DAILY [facility] Last Admin: 04/08/18 09:14 Dose: 81 mg Carvedilol (Coreg) 3.125 mg PO BID [facility] Last Admin: 04/08/18 09:14 Dose: 3.125 mg Clopidogrel Bisulfate (Plavix) 75 mg PO DAILY [facility] Last Admin: 04/08/18 09:13 Dose: 75 mg Enoxaparin Sodium (Lovenox) 40 mg SC DAILY [facility] Last Admin: 04/08/18 09:14 Dose: 40 mg Famotidine (Pepcid) 20 mg PO Q12H [facility] Last Admin: 04/08/18 06:00 Dose: 20 mg Furosemide (Lasix) 20 mg PO DAILY [facility] Last Admin: 04/08/18 09:13 Dose: 20 mg Ceftriaxone Sodium 1 gm/ (Sodium Chloride) 100 mls @ 100 mls/hr IVPB Q12H [facility] PRN Reason: Protocol Last Admin: 04/08/18 03:30 Dose: 100 mls/hr Insulin Aspart (Novolog) 10 unit SC TIDAC [facility] Last Admin: 04/08/18 08:20 Dose: 10 units Insulin Detemir (Levemir) 30 unit SC AMHS [facility] Last Admin: 08/11/18 22:01 Dose: 30 units Insulin Human Regular (Novolin R) 0 unit SC ACHS [facility] PRN Reason: Protocol Last Admin: 04/08/18 08:20 Dose: 6 units Lisinopril (Zestril) 5 mg PO DAILY [facility] Last Admin: 04/08/18 09:13 Dose: 5 mg Metformin HCl (Glucophage) 1,000 mg PO BIDCC [facility] Last Admin: 04/08/18 08:20 Dose: 1,000 mg Methylprednisolone (Solu-Medrol) 40 mg IV Q6 [facility] Last Admin: 04/08/18 06:00 Dose: 40 mg Rosuvastatin Calcium (Crestor) 10 mg PO HS [facility] Last Admin: 04/07/18 23:17 Dose: 10 mg Fluticasone/Salmeterol (Advair Diskus 250/50) 1 puff INH RQ12 [facility] Last Admin: 04/08/18 07:24 Dose: 1 puff Tiotropium [place] (Spiriva) 18 mcg INH RQ24 [facility] Last Admin: 04/08/18 07:23 Dose: 18 mcg - Labs Labs: 04/08/18 07:43 04/08/18 07:43 PT 11.9 SECONDS (9.7-12.2) 04/05/18 14:40 INR 1.1 04/05/18 14:40 APTT 29 SECONDS (21-34) 04/05/18 14:40 - Constitutional Appears: Non-toxic, No Acute Distress - Head Exam Head Exam: NORMAL INSPECTION, NORMOCEPHALIC - Eye Exam Eye Exam: EOMI, Normal appearance. absent: Nystagmus, Scleral icterus - Respiratory Exam Respiratory Exam: Clear to Ausculation Bilateral, NORMAL BREATHING PATTERN. absent: Rales, Rhonchi, Wheezes - Cardiovascular Exam Cardiovascular Exam: REGULAR RHYTHM, +S1, +S2. absent: Bradycardia, Tachycardia - GI/Abdominal Exam GI & Abdominal Exam: Soft, Normal Bowel Sounds. absent: Distended, Firm, Guarding, Tenderness - Extremities Exam Extremities Exam: Normal Inspection. absent: Calf Tenderness, Pedal Edema - Back Exam Back Exam: NORMAL INSPECTION. absent: CVA tenderness (L), CVA tenderness (R) - Neurological Exam Neurological Exam: Alert, Awake, Oriented x3 - Psychiatric Exam Psychiatric exam: Normal Affect, Normal Mood - Skin Skin Exam: Intact, Normal Color Assessment and Plan - Assessment and Plan (Free Text) Assessment: Patient is a 62 yo male with a h/o asthma, T2DM, HTN, [place] in 2016 who presented with cough and SOB. He received Augmentin and promethazine as an outpatient, but these did not relieve his symptoms. Thus far, no specific cause , including infection, has been identified; suspect asthma exacerbation. Plan: Acute Exacerbation of Asthma IgE 1591 Duonebs 3ml INH q4 kennedi Advair disckus 1 puff inh q12 Tiotropium 18mcg INH q24 Solumedrol 40mg IV q6sch DM2 ISS-high dose Levemir 40units bid Metformin 1000mg po bid Accuchecks Hypoglycemic protocol HTN Normotensive 123/74 Carvedilol 3.125 mg po bid Lasix 20mg po dialy Lisinopril 5mg po daily Hx of [place] Aspirin 81 mg po daily Carvedilol 3.125 mg po bid Plavix 75mg po daily Lasix 20mg po dialy Lisinopril 5mg po daily Crestor 10mg po daily PPX DVT ppx: Lovenox 40mg sc daily GI ppx: Pepcid 20mg po q12
[2018-04-08] MEDS: Insulin Detemir 100 units/ml Vial (Levemir) SC SCH (10:29)
[2018-04-08 16:37] VITALS: BP 165/76; PULSE 71; RESP 20; TEMP 97.9; O2SAT 95
--- NOTE | 2018-04-08 17:14 | CP.PCM.DIS ---
Provider - Provider Date of Admission: 04/05/18 15:43 Attending physician: Víctor Doan DO Time Spent in preparation of Discharge (in minutes): 45 Diagnosis - Discharge Diagnosis (1) Asthma exacerbation Status: Resolved Hospital Course - Lab Results Lab Results: Micro Results 04/05/18 14:59 Blood Blood Culture - Preliminary NO GROWTH AFTER 3 DAYS 04/05/18 14:59 Blood Blood Culture - Preliminary NO GROWTH AFTER 3 DAYS Most Recent Lab Values WBC 15.4 K/uL (4.8-10.8) H 04/08/18 07:43 RBC 4.47 Mil/uL (4.40-5.90) 04/08/18 07:43 Hgb 13.4 g/dL (12.0-18.0) 04/08/18 07:43 Hct 39.3 % (35.0-51.0) 04/08/18 07:43 MCV 87.9 fL (80.0-94.0) 04/08/18 07:43 MCH 29.9 pg (27.0-31.0) 04/08/18 07:43 MCHC 34.0 g/dL (33.0-37.0) 04/08/18 07:43 RDW 13.5 % (11.5-14.5) 04/08/18 07:43 Plt Count 335 K/uL (130-400) 04/08/18 07:43 MPV 7.9 fL (7.2-11.7) 04/08/18 07:43 Neut % (Auto) 89.2 % (50.0-75.0) H 04/08/18 07:43 Lymph % (Auto) 7.7 % (20.0-40.0) L 04/08/18 07:43 Grant % (Auto) 3.0 % (0.0-10.0) 04/08/18 07:43 Eos % (Auto) 0.0 % (0.0-4.0) 04/08/18 07:43 Baso % (Auto) 0.1 % (0.0-2.0) 04/08/18 07:43 Neut # (Auto) 13.7 K/uL (1.8-7.0) H 04/08/18 07:43 Lymph # (Auto) 1.2 K/uL (1.0-4.3) 04/08/18 07:43 Grant # (Auto) 0.5 K/uL (0.0-0.8) 04/08/18 07:43 Eos # (Auto) 0.0 K/uL (0.0-0.7) 04/08/18 07:43 Baso # (Auto) 0.0 K/uL (0.0-0.2) 04/08/18 07:43 Neutrophils % (Manual) 86 % (50-75) H 04/08/18 07:43 Band Neutrophils % 2 % (0-2) 04/08/18 07:43 Lymphocytes % (Manual) 8 % (20-40) L 04/08/18 07:43 Monocytes % (Manual) 4 % (0-10) 04/08/18 07:43 Eosinophils % (Manual) 1 % (0-4) 04/07/18 08:44 Platelet Estimate Normal (NORMAL) 04/08/18 07:43 Plt Clumps, EDTA Present 04/08/18 07:43 Polychromasia Slight 04/08/18 07:43 Anisocytosis (manual) Slight 04/08/18 07:43 PT 11.9 SECONDS (9.7-12.2) 04/05/18 14:40 INR 1.1 04/05/18 14:40 APTT 29 SECONDS (21-34) 04/05/18 14:40 Sodium 135 mmol/L (132-148) 04/08/18 07:43 Potassium 4.7 mmol/L (3.6-5.2) 04/08/18 07:43 Chloride 96 mmol/L (98-107) L 04/08/18 07:43 Carbon Dioxide 25 mmol/L (22-30) 04/08/18 07:43 Anion Gap 18 (10-20) 04/08/18 07:43 BUN 31 mg/dL (9-20) H 04/08/18 07:43 Creatinine 0.9 mg/dL (0.8-1.5) 04/08/18 07:43 Est GFR ( Amer) > 60 04/08/18 07:43 Est GFR (Non-Af Amer) > 60 04/08/18 07:43 POC Glucose (mg/dL) 404 mg/dL (65-110) H* 04/06/18 16:59 Random Glucose 324 mg/dL (75-110) H 04/08/18 07:43 Calcium 9.3 mg/dl (8.6-10.4) 04/08/18 07:43 Phosphorus 4.7 mg/dL (2.5-4.5) H 04/08/18 07:43 Magnesium 2.2 mg/dL (1.6-2.3) 04/08/18 07:43 Total Bilirubin 0.5 mg/dL (0.2-1.3) 04/08/18 07:43 AST 11 U/L (17-59) L D 04/08/18 07:43 ALT 21 U/L (21-72) D 04/08/18 07:43 Alkaline Phosphatase 80 U/L (38-126) 04/08/18 07:43 Troponin I < 0.0120 ng/mL (0.00-0.120) 04/06/18 01:01 NT-Pro-B Natriuret Pep 279 pg/mL (0-900) 04/05/18 14:40 Total Protein 6.3 g/dL (6.3-8.3) 04/08/18 07:43 Albumin 3.6 g/dL (3.5-5.0) 04/08/18 07:43 Globulin 2.8 gm/dL (2.2-3.9) 04/08/18 07:43 Albumin/Globulin Ratio 1.3 (1.0-2.1) 04/08/18 07:43 Urine Color Straw (YELLOW) 04/05/18 22:46 Urine Clarity Clear (Clear) 04/05/18 22:46 Urine pH 6.0 (5.0-8.0) 04/05/18 22:46 Ur Specific [place] 1.029 (1.003-1.030) 04/05/18 22:46 Urine Protein Negative mg/dL (NEGATIVE) 04/05/18 22:46 Urine Glucose (UA) 3+ mg/dL (Normal) H 04/05/18 22:46 Urine Ketones Negative mg/dL (NEGATIVE) 04/05/18 22:46 Urine Blood Negative (NEGATIVE) 04/05/18 22:46 Urine Nitrate Negative (NEGATIVE) 04/05/18 22:46 Urine Bilirubin Negative (NEGATIVE) 04/05/18 22:46 Urine Urobilinogen Normal mg/dL (0.2-1.0) 04/05/18 22:46 Ur Leukocyte Esterase Neg [place]/uL (Negative) 04/05/18 22:46 Urine RBC (Auto) 2 /hpf (0-3) 04/05/18 22:46 IgE 1591 kU/L (<vv=465) H 04/06/18 07:49 - Hospital Course Hospital Course: PMD: Osmel Sanchez MD [phone], [facility] ROS: Pos+ dizziness, sore throat, SOB, Cough, flushing Neg- chest pain, n/v, f/c, swelling in extremities, recent travel, sick contacts, rash, back/neck pain, PMH: Asthma, HTN DM2, OA, [place] in 2005 (2 stents) PSx: none Fam Hx: Dad- chf, polycythemia, HTN Mom- HTN DM Sister- Asthma SocHx: Occasional alcohol use, lives alone in elderly home (built 1969), on disability Upon admission: 62yo male with a PMH of Asthma, HTN, DM type 2, OA, [place] in 2015 presents with a one week history of worsening cough and shortness of breath. Pt reports feeling this last . He went to his PMD Dr Osmel Sanchez for treatment where he was given promethazine syrup and Augmentin. He found no relief from these medications and felt that he needed to come to the hospital today. He was brought in by his sister. Pt says he's unable to tolerate short distaces without getting short of breath. He states clear white phlegm is produced with cough. Pt reports getting Asthma attacks similar to this every 2 months or so, more frequently during the winter. Hospital Course: 62 yo male with presents to hospital for evaluation of progressive worsening of shortness of breath and cough; patient found to have high levels IgE; was treated with breathing treatements and IV solumedrol; patient improved; discharged to follow up with Dr. Coles Discharge Plan: Patient is stable for discharge to home as per Dr. Larose. Patient should follow up with Dr. Coles within 1 week after discharge from hospital. Patient is to resume all of his home medications as no medication adjustments were made at this time. Patient should return to the hospital if symptoms recur or worsen. Patient understands the plan and agrees to the above. Disclaimer: Written above is a synopsis of patient current hospital admission. For full report refer to EMR Discharge Exam - Head Exam Head Exam: NORMAL INSPECTION, NORMOCEPHALIC - Eye Exam Eye Exam: EOMI, Normal appearance - Respiratory Exam Respiratory Exam: NORMAL BREATHING PATTERN. absent: Rales, Rhonchi, Wheezes, Respiratory Distress - Cardiovascular Exam Cardiovascular Exam: REGULAR RHYTHM, +S1, +S2. absent: Tachycardia - GI/Abdominal Exam GI & Abdominal Exam: Normal Bowel Sounds. absent: Distended, Firm, Guarding, Hernia - Extremities Exam Extremities exam: normal inspection - Neurological Exam Neurological exam: Alert, Oriented x3 - Psychiatric Exam Psychiatric exam: Normal Affect, Normal Mood - Skin Skin Exam: Intact, Normal Color Discharge Plan - Follow Up Plan Condition: FAIR Disposition: HOME/ ROUTINE Instructions: Acute Bronchitis, Adult (DC), Chest Pain (DC) Additional Instructions: Patient is stable for discharge to home as per Dr. Larose. Patient should follow up with Dr. Coles within 1 week after discharge from hospital. Patient is to resume all of his home medications as no medication adjustments were made at this time. Patient should return to the hospital if symptoms recur or worsen. Patient understands the plan and agrees to the above. Referrals: Timur Coles MD [Staff Provider] -
== END 2018-04-08 17:00 | disposition home or self-care (01) | DRG 203 ==
LOC: C.ER 12:58 → C.9E 15:43 → C.6T 16:06
PROVIDERS: ADMIT Hospitalist; ATTEND Hospitalist
DX: J45.901 Unspecified asthma with (acute) exacerbation (principal); E11.65 Type 2 diabetes mellitus with hyperglycemia; J40 Bronchitis, not specified as acute or chronic; R07.89 Other chest pain; I10 Essential (primary) hypertension; E78.5 Hyperlipidemia, unspecified; E78.00 Pure hypercholesterolemia, unspecified; I25.2 Old myocardial infarction; Z95.5 Presence of coronary angioplasty implant and graft

== ENCOUNTER 2018-04-27 12:32 | Emergency (ER) | payer MEDICARE ==
[2018-04-27] MEDS ORDERED: Albuterol-Ipratrop 3 mg / 0.5 (3 ml) UD INH STA ×2 (14:16→15:17)
[2018-04-27] MEDS ORDERED: Albuterol-Ipratrop 3 mg / 0.5 (3 ml) UD ONE ×2 (14:30→15:39)
[2018-04-27 14:33] LABS: BASO # 0.1 K/uL (0.0-0.2); BASO % 0.7 % (0.0-2.0); EOS # 0.3 K/uL (0.0-0.7); HEMOGLOBIN 13.3 g/dL (12.0-18.0); LYMPH # 1.7 K/uL (1.0-4.3); LYMPH % 18.4 % (20.0-40.0); MEAN CORPUSCULAR HEMOGLOBIN 29.5 pg (27.0-31.0); MEAN CORPUSCULAR HGB CONC 34.4 g/dL (33.0-37.0); MEAN PLATELET VOLUME 7.1 fL (7.2-11.7); MONO # 0.6 K/uL (0.0-0.8); MONO % 6.1 % (0.0-10.0); NEUT # 6.8 K/uL (1.8-7.0); NEUT % 71.8 % (50.0-75.0); NRBC % 0.1 % (0.0-2.0); RBC 4.49 Mil/uL (4.40-5.90); RED CELL DISTRIBUTION WIDTH 13.4 % (11.5-14.5); WHITE BLOOD COUNT 9.4 K/uL (4.8-10.8)
[2018-04-27 14:34] LABS: MEAN CELL VOLUME 85.8 fL (80.0-94.0)
--- NOTE | 2018-04-27 14:45 | RAD ---
Date of service: 04/27/2018 HISTORY: SOB COMPARISON: 04/05/2018 TECHNIQUE: Chest PA and lateral FINDINGS: LUNGS: No active pulmonary disease. PLEURA: No significant pleural effusion identified. No pneumothorax apparent. CARDIOVASCULAR: Normal. OSSEOUS STRUCTURES: No significant abnormalities. VISUALIZED UPPER ABDOMEN: Normal. OTHER FINDINGS: None. IMPRESSION: No active disease.
[2018-04-27 14:56] LABS: B-TYPE NATRIURETIC PEPTIDE 344 pg/mL (0-900)
[2018-04-27 15:08] LABS: ALB/GLOB RATIO 1.4 (1.0-2.1); ALBUMIN 3.6 g/dL (3.5-5.0); ALT/SGPT 36 U/L (21-72); AST/SGOT 22 U/L (17-59); BLOOD UREA NITROGEN 6 mg/dL (9-20); GFR NON-AFRICAN AMERICAN > 60
[2018-04-27 16:19] VITALS: BP 128/77; PULSE 96; RESP 14; TEMP 99.1
[2018-04-27 16:21] VITALS: O2SAT 98
--- NOTE | 2018-04-27 16:21 | C.PDOC ---
History Of Present Illness 62 year old male patient with hx of asthma presents to the ER with c/o increasing SOB. Patient reports he has used his inhaler at home with no relief. Associated symptoms includes cough, SOB and wheezing on expiratory. Patient denies history of tobacco smoking, chest pain, fever and chills. Time Seen by Provider: 04/27/18 13:47 Chief Complaint (Nursing): Cough, Cold, Congestion History Per: Patient History/Exam Limitations: no limitations Current Symptoms Are (Timing): Still Present Past Medical History Reviewed: Historical Data, Nursing Documentation, Vital Signs Vital Signs: Last Vital Signs Temp 99.1 F 04/27/18 16:19 Pulse 96 H 04/27/18 16:19 Resp 14 04/27/18 16:19 BP 128/77 04/27/18 16:19 Pulse Ox 98 04/27/18 18:31 - Medical History PMH: Arthritis, Asthma, HTN, Hypercholesterolemia Surgical History: Coronary Stent (2016) Family History: States: Unknown Family Hx - Social History Hx Alcohol Use: No Hx Substance Use: No - Immunization History Hx Tetanus Toxoid Vaccination: Yes Hx Influenza Vaccination: Yes Hx Pneumococcal Vaccination: Yes Review Of Systems Except As Marked, All Systems Reviewed And Found Negative. Respiratory: Positive for: Cough, Shortness of Breath Physical Exam - Physical Exam Appears: Non-toxic, No Acute Distress Skin: Normal Color, Warm, Dry Head: Atraumatic, Normacephalic Eye(s): bilateral: Normal Inspection, PERRL, EOMI Nose: Normal Oral Mucosa: Moist Chest: Symmetrical Cardiovascular: Rhythm Regular, No Murmur Respiratory: No Rales, No Rhonchi, No Stridor, Wheezing (on expiratory) Gastrointestinal/Abdominal: Normal Exam, Soft, No Tenderness Extremity: Normal ROM Extremity: Bilateral: Atraumatic, Normal Color And Temperature Neurological/Psych: Oriented x3, Normal Speech ED Course And Treatment - Laboratory Results Result Diagrams: 04/27/18 14:26 04/27/18 14:26 ECG: Interpreted By Me, Viewed By Me ECG Rhythm: Sinus Rhythm ECG Interpretation: Normal, No Acute Changes Interpretation Of ECG: Normal sinus rhythm, no ST wave abnormality Rate From EC O2 Sat by Pulse Oximetry: 98 (RA) Pulse Ox Interpretation: Normal - Other Rad Chest X-Ray: Read By Radiologist Interpretation: Accession No. : [id number]. Patient Name / ID : MARK ROYAL / [id number]. Exam Date : 04/27/2018 14:19:00 ( Approved ). Study Comment : Sex / Age : M / 62Y. Creator : Víctor Gallardo MD. Dictator : Víctor Gallardo MD. Informatics Consultant : Council Member : Víctor Gallardo MD. Approver2 : Report Date : 04/27/2018 14:43:51. My Comment : . Date of service: 04/27/2018. HISTORY: SOB. COMPARISON: 04/05/2018. TECHNIQUE: Chest PA and lateral. FINDINGS: LUNGS: No active pulmonary disease. PLEURA: No significant pleural effusion identified. No pneumothorax apparent. CARDIOVASCULAR: Normal. OSSEOUS STRUCTURES: No significant abnormalities. VISUALIZED UPPER ABDOMEN: Normal. OTHER FINDINGS: None. IMPRESSION: No active disease. Medical Decision Making Medical Decision Making: Impression: SOB and wheezing on expiratory Plans: -- EKG -- blood work -- CXR -- Glucose POC -- albuterol -- SOLU-Medrol Reassess: Patient is resting comfortably. Patient states he is feeling much better. No chest pain or retractions. Breath sounds has improved, Patient is alert and oriented x3. Patient is instructed to f/u with PMD in 1-2 days. Disposition - Disposition Referrals: Shiva Frye MD [Staff Provider] - Disposition: HOME/ ROUTINE Disposition Time: 16:17 Condition: STABLE Additional Instructions: follow up with your doctor within 2 days call to make an appointment take medications as prescribed return to ER if symptoms worsens or progress Prescriptions: Albuterol HFA [Ventolin HFA 90 mcg/actuation (8 g)] 2 puff IH [id number] #1 puff Fluticasone/Vilanterol [Breo Ellipta 200-25 Mcg INH] 1 each IH DAILY #1 blst.w.dev predniSONE [predniSONE Tab] 50 mg PO DAILY #4 tab Instructions: Asthma in Adults Forms: [facility] (German), General Discharge Instructions - Clinical Impression Clinical Impression: Asthma - Scribe Statement The provider has reviewed the documentation as recorded by the Scribe Patria Malagon Provider Attestation: All medical record entries made by the Scribe were at my direction and personally dictated by me. I have reviewed the chart and agree that the record accurately reflects my personal performance of the history, physical exam, medical decision making, and the department course for this patient. I have also personally directed, reviewed, and agree with the discharge instructions and disposition.
--- NOTE | 2018-05-01 22:23 | CARD ---
APPROVED REPORT Date of service: 04/27/2018 EKG Measurement Heart [id number] <Conclusion> Normal sinus rhythm Normal ECG
== END 2018-04-27 16:31 | disposition home or self-care (01) ==
LOC: C.ER 12:32
DX: J45.909 Unspecified asthma, uncomplicated (principal)
CPT/HCPCS: 71046; 80053; 82948; 83735; 83880; 84484; 85025; 93005; 94150; 94640; 96374; 99284; J2930

== ENCOUNTER 2018-09-19 13:43 | Inpatient (IN) | payer MEDICARE ==
[2018-09-19] MEDS ORDERED: Sodium Chloride 0.9% 1,000 ML ONE (14:39)
[2018-09-19] MEDS ORDERED: Albuterol 0.083% Inhal Sol (2.5 mg/3 mL) UD IH STA (14:47)
[2018-09-19] MEDS ORDERED: Albuterol-Ipratrop 3 mg / 0.5 (3 ml) UD IH STA (14:47)
[2018-09-19] MEDS ORDERED: Sodium Chloride 0.9% 1,000 ML IV ONE (14:54)
[2018-09-19 14:55] LABS: BASO # 0.1 K/uL (0.0-0.2); BASO % 0.7 % (0.0-2.0); EOS % 0.1 % (0.0-4.0); HEMOGLOBIN 14.4 g/dL (12.0-18.0); LYMPH # 1.7 K/uL (1.0-4.3); LYMPH % 17.3 % (20.0-40.0); MEAN CELL VOLUME 87.3 fL (80.0-94.0); MEAN CORPUSCULAR HEMOGLOBIN 29.3 pg (27.0-31.0); MEAN CORPUSCULAR HGB CONC 33.6 g/dL (33.0-37.0); MONO # 0.5 K/uL (0.0-0.8); MONO % 5.5 % (0.0-10.0); NEUT # 7.6 K/uL (1.8-7.0); NEUT % 76.4 % (50.0-75.0); RBC 4.91 Mil/uL (4.40-5.90); RED CELL DISTRIBUTION WIDTH 13.2 % (11.5-14.5)
[2018-09-19] MEDS ORDERED: (Novolin R) Insulin Human Regular 100 units/ml vial IVP ONE (14:55)
[2018-09-19 15:18] LABS: B-TYPE NATRIURETIC PEPTIDE 394 pg/mL (0-900)
[2018-09-19 15:22] LABS: ALB/GLOB RATIO 1.4 (1.0-2.1); ALBUMIN 4.2 g/dL (3.5-5.0); ALT/SGPT 20 U/L (21-72); AST/SGOT 16 U/L (17-59); BLOOD UREA NITROGEN 14 mg/dL (9-20); CALCIUM 8.7 mg/dl (8.6-10.4); GFR NON-AFRICAN AMERICAN > 60
[2018-09-19] MEDS ORDERED: Albuterol-Ipratrop 3 mg / 0.5 (3 ml) UD ONE (15:53)
[2018-09-19] MEDS ORDERED: (Novolin R) Insulin Human Regular 100 units/ml vial ONE (15:54)
--- NOTE | 2018-09-19 16:36 | RAD ---
Date of service: 09/19/2018 HISTORY: BED 13 R/O INFILTRATE COMPARISON: 05/15/2018 FINDINGS: LUNGS: No active pulmonary disease. PLEURA: No significant pleural effusion identified, no pneumothorax apparent. CARDIOVASCULAR: No aortic atherosclerotic calcification present. Normal cardiac size. No pulmonary vascular congestion. OSSEOUS STRUCTURES: No significant abnormalities. VISUALIZED UPPER ABDOMEN: Normal. OTHER FINDINGS: None. IMPRESSION: No active disease.
--- NOTE | 2018-09-19 16:50 | C.PDOC ---
History Of Present Illness 62 y/o male,w/PMhx of asthma, HTN, diabetes, IN, and sleep apnea, presents to the ER complaining of shortness of breath and productive cough with white and yellow phlegm which has become progressive worse over the past 5 days. Patient states that he uses nebulizer and Proair inhaler on a regular basis at home. Patient reports that he was evaluated by his PMD, 2 days ago and he was prescribed Z-Pack and Medrol pack. He notes that he took the medications without relief. He used a nebulizer [employer]. Denies having fever,chills, and CP. Time Seen by Provider: 09/19/18 14:36 Chief Complaint (Nursing): Weakness/Neurological Deficit History Per: Patient History/Exam Limitations: no limitations Onset/Duration Of Symptoms: Days Current Symptoms Are (Timing): Still Present Severity: Moderate Past Medical History Reviewed: Historical Data, Nursing Documentation, Vital Signs Vital Signs: Last Vital Signs Temp 98.5 F 09/19/18 14:00 Pulse 102 H 09/19/18 14:40 Resp 22 09/19/18 14:40 BP 132/79 09/19/18 14:40 Pulse Ox 98 09/19/18 14:40 - Medical History PMH: Arthritis, Asthma, HTN, Hypercholesterolemia Denies: Chronic Kidney Disease Surgical History: Coronary Stent (2016) Family History: States: No Known Family Hx - Social History Hx Alcohol Use: Yes (Occasions) Hx Substance Use: No - Immunization History Hx Tetanus Toxoid Vaccination: Yes Hx Influenza Vaccination: Yes (2017) Hx Pneumococcal Vaccination: Yes Review Of Systems Constitutional: Negative for: Fever, Chills Cardiovascular: Negative for: Chest Pain Respiratory: Positive for: Cough, Shortness of Breath Gastrointestinal: Negative for: Nausea, Vomiting Physical Exam - Physical Exam Appears: Non-toxic, No Acute Distress Skin: Normal Color, Warm, Dry Head: Atraumatic, Normacephalic Eye(s): bilateral: Normal Inspection Nose: Normal Oral Mucosa: Moist Neck: Supple Cardiovascular: Rhythm Regular Respiratory: No Rales, No Rhonchi, Wheezing (diffuse expiratory wheezing), Other (tachypneic) Gastrointestinal/Abdominal: Soft, No Tenderness, No Guarding, No Rebound Neurological/Psych: Oriented x3, Normal Speech ED Course And Treatment - Laboratory Results Result Diagrams: 09/19/18 14:47 09/19/18 14:47 Lab Results: NT-Pro-B Natriuret Pep 394 pg/mL (0-900) 09/19/18 14:47 Total Bilirubin 0.5 mg/dL (0.2-1.3) 09/19/18 14:47 AST 16 U/L (17-59) L D 09/19/18 14:47 ALT 20 U/L (21-72) L D 09/19/18 14:47 Alkaline Phosphatase 129 U/L (38-126) H D 09/19/18 14:47 Total Protein 7.0 g/dL (6.3-8.3) 09/19/18 14:47 Albumin 4.2 g/dL (3.5-5.0) 09/19/18 14:47 Globulin 2.9 gm/dL (2.2-3.9) 09/19/18 14:47 Albumin/Globulin Ratio 1.4 (1.0-2.1) 09/19/18 14:47 Lab Interpretation: Abnormal (Na 127, Glucose 651) ECG: Interpreted By Me ECG Rhythm: Sinus Rhythm ECG Interpretation: Normal O2 Sat by Pulse Oximetry: 98 (RA) Pulse Ox Interpretation: Normal - Radiology CXR: Viewed By Me, Read By Radiologist CXR Interpretation: Yes: No Acute Disease Progress Note: Patient treated with Albuterol via nebulizer and Solumedrol in ED. He was given IV saline and insulin for hyperglycemia. Reevaluation Time: 16:44 Reassessment Condition: Unchanged - Physician Consult Information Physician Contacted: Ehsan Garcia Outcome Of Conversation: Patient to be admitted for exacerbation COPD Disposition - Disposition Disposition: HOSPITALIZED Disposition Time: 19:07 Condition: STABLE - POA Present On Arrival: Poor Glycemic Control - Clinical Impression Clinical Impression: COPD with acute exacerbation, Uncontrolled diabetes mellitus - Scribe Statement The provider has reviewed the documentation as recorded by the Campbell Regan Provider Attestation: All medical record entries made by the Campbell were at my direction and personally dictated by me. I have reviewed the chart and agree that the record accurately reflects my personal performance of the history, physical exam, medical decision making, and the department course for this patient. I have also personally directed, reviewed, and agree with the discharge instructions and disposition.
[2018-09-19 17:18] LABS: URINE BILIRUBIN NEGATIVE (NEGATIVE); URINE BLOOD NEGATIVE (NEGATIVE); URINE CLARITY Clear (Clear); URINE COLOR Straw (YELLOW); URINE GLUCOSE (UA) 3+ mg/dL (Normal); URINE LEUKOCYTE ESTERASE NEG Leu/uL (Negative); URINE PROTEIN NEGATIVE (NEGATIVE); URINE UROBILINOGEN NORMAL mg/dL (0.2-1.0)
[2018-09-19] MEDS ORDERED: Dextrose 50% SYRINGE Inj (50 ml) IV PRN (17:36)
[2018-09-19] MEDS ORDERED: Glucagon Recombinant 1 mg Inj IM PRN (17:36)
[2018-09-19 17:57] VITALS: RESP 20
[2018-09-19] MEDS ORDERED: Magnesium Sulfate 2 GM in Sodium Chloride 0.9% 100 ML IV ONE ×2 (19:00→21:00)
[2018-09-19] MEDS ORDERED: Albuterol-Ipratrop 3 mg / 0.5 (3 ml) UD INH SCH (20:00)
--- NOTE | 2018-09-19 20:40 | CP.PCM.HP ---
<Chet López - Last Filed: 09/20/18 00:35> History of Present Illness - History of Present Illness History of Present Illness: PGY-1 History and Physical [address] Dr. Taylor Patient is a 62 year old obese male with past medical history of HTN, CHIP, DM, and ID (2016) w/ cardiac stent presenting to the ED with worsening productive cough with whitish yellow sputum and associated shortness of breath since last . Patient states that he uses his ventolin inhaler on a regular basis 2-3x/day but it has not been helping. Patient was seen by his PMD, Dr. Shiva Sanchez, 2 days ago for his symptoms and given a Z-pack, Medrol dose pack, tessalon perles, and nebs which did not provide any significant improvement. He was prompted to come to the ED for further evaluation. Patient has had chronic recurrent cough for last 6-7 years, has been seen in the past for similar complaints. Of note, patient states he has had ~50 lbs weight loss since last admission in April. He states it has been intentional--"watching what I eat". Patient also endorses uncontrolled BG levels since that time typically running in high 400s. He has polyphagia at time of examination. He complaints of some dyspnea on exertion and orthopnea. He also complains of intermittent chest pain earlier in the week but no current chest pain or palpitations. No new sick contacts at home or recent travel. He denies fevers/chills, headaches, dizziness, abdominal pain, nausea/vomiting/diarrhea/constipation, dysuria, or changes in stool. PMHx: HTN, CHIP, DM, and ID (2016) w/ cardiac stent PSHx: cardiac stent x 2 (2016) Allergies: NKDA Home Medications: as per chart Family Hx: Father - CHF, polycythemia, HTN | Mother - DM, Asthma Social Hx: social drinker, denies any tobacco or illicit drug use PMD: Dr. Shiva Sanchez Comber Fixer: Dr. Coles Present on Admission - Present on Admission Any Indicators Present on Admission: Yes History of Uncontrolled Diabetes: Yes Review of Systems - Review of Systems All systems: reviewed and no additional remarkable complaints except Review of Systems: as per HPI Past Patient History - Past Medical History & Family History Past Medical History?: Yes - Past Social History Smoking Status: Never Smoked - CARDIAC Hx Hypercholesterolemia: Yes Hx Hypertension: Yes - PULMONARY Hx Asthma: Yes - NEUROLOGICAL Hx Neurological Disorder: Yes - HEENT Hx HEENT Problems: Yes Other/Comment: wear eye glasses for poor vision - RENAL Hx Chronic Kidney Disease: No - ENDOCRINE/METABOLIC Hx Endocrine Disorders: Yes Hx Diabetes Mellitus Type 2: Yes - HEMATOLOGICAL/ONCOLOGICAL Hx Blood Disorders: No - INTEGUMENTARY Hx Dermatological Problems: No - MUSCULOSKELETAL/RHEUMATOLOGICAL Hx Arthritis: Yes - GASTROINTESTINAL Hx Gastrointestinal Disorders: No - GENITOURINARY/GYNECOLOGICAL Hx Genitourinary Disorders: No - PSYCHIATRIC Hx Substance Use: No - SURGICAL HISTORY Hx Coronary Stent: Yes (2015) - ANESTHESIA Hx Anesthesia: Yes Hx Anesthesia Reactions: No Meds Allergies/Adverse Reactions: Allergies Allergy/AdvReac Type Severity Reaction Status Date / Time No Known Allergies Allergy Verified 09/19/18 14:01 Physical Exam - Constitutional Appears: Non-toxic, No Acute Distress - Head Exam Head Exam: ATRAUMATIC, NORMAL INSPECTION, NORMOCEPHALIC - Eye Exam Eye Exam: EOMI, Normal appearance, PERRL Pupil Exam: NORMAL ACCOMODATION - ENT Exam ENT Exam: Mucous Membranes Dry, Normal Exam - Neck Exam Neck exam: Positive for: Full Rom, Normal Inspection. Negative for: Tenderness - Respiratory Exam Respiratory Exam: Wheezes, NORMAL BREATHING PATTERN. absent: Accessory Muscle Use, Respiratory Distress - Cardiovascular Exam Cardiovascular Exam: REGULAR RHYTHM, +S1, +S2 - GI/Abdominal Exam GI & Abdominal Exam: Normal Bowel Sounds, Soft. absent: Distended, Firm, Guarding, Rebound, Rigid, Tenderness - Extremities Exam Extremities exam: Positive for: normal capillary refill, normal inspection, pedal edema, pedal pulses present. Negative for: calf tenderness - Back Exam Back exam: NORMAL INSPECTION - Neurological Exam Neurological exam: Alert, CN II-XII Intact, Oriented x3 - Psychiatric Exam Psychiatric exam: Normal Affect, Normal Mood - Skin Skin Exam: Dry, Intact, Normal Color, Warm Results - Vital Signs Recent Vital Signs: Last Vital Signs Temp 98.5 F 09/19/18 19:49 Pulse 76 09/19/18 19:49 Resp 20 09/19/18 19:49 BP 131/78 09/19/18 19:49 Pulse Ox 96 09/19/18 19:49 - Labs Result Diagrams: 09/19/18 14:47 09/19/18 14:47 Labs: Laboratory Results - last 24 hr 09/19/18 09/19/18 09/19/18 14:34 14:39 14:47 WBC RBC Hgb Hct MCV MCH MCHC RDW Plt Count MPV Neut % (Auto) Lymph % (Auto) [place] % (Auto) Eos % (Auto) Baso % (Auto) Neut # (Auto) Lymph # (Auto) [place] # (Auto) Eos # (Auto) Baso # (Auto) Sodium 127 L Potassium 3.6 Chloride 89 L Carbon Dioxide 24 Anion Gap 18 BUN 14 Creatinine 0.7 L Est GFR ( Amer) > 60 Est GFR (Non-Af Amer) > 60 POC Glucose (mg/dL) > 500 H* Random Glucose 651 H* D Calcium 8.7 Total Bilirubin 0.5 AST 16 L D ALT 20 L D Alkaline Phosphatase 129 H D NT-Pro-B Natriuret Pep 394 Total Protein 7.0 Albumin 4.2 Globulin 2.9 Albumin/Globulin Ratio 1.4 Urine Color Straw Urine Clarity Clear Urine pH 5.0 Ur Specific [place] 1.028 Urine Protein Negative Urine Glucose (UA) 3+ H Urine Ketones Negative Urine Blood Negative Urine Nitrate Negative Urine Bilirubin Negative Urine Urobilinogen Normal Ur Leukocyte Esterase Neg Urine WBC (Auto) < 1 B-Hydroxybutyrate 0.11 Influenza Typ A,B (EIA) 09/19/18 09/19/18 09/19/18 14:47 17:16 18:45 WBC 10.0 RBC 4.91 Hgb 14.4 Hct 42.9 MCV 87.3 MCH 29.3 MCHC 33.6 RDW 13.2 Plt Count 309 MPV 8.0 Neut % (Auto) 76.4 H Lymph % (Auto) 17.3 L [place] % (Auto) 5.5 Eos % (Auto) 0.1 Baso % (Auto) 0.7 Neut # (Auto) 7.6 H Lymph # (Auto) 1.7 [place] # (Auto) 0.5 Eos # (Auto) 0.0 Baso # (Auto) 0.1 Sodium Potassium Chloride Carbon Dioxide Anion Gap BUN Creatinine Est GFR ( Amer) Est GFR (Non-Af Amer) POC Glucose (mg/dL) 445 H* Random Glucose Calcium Total Bilirubin AST ALT Alkaline Phosphatase NT-Pro-B Natriuret Pep Total Protein Albumin Globulin Albumin/Globulin Ratio Urine Color Urine Clarity Urine pH Ur Specific [place] Urine Protein Urine Glucose (UA) Urine Ketones Urine Blood Urine Nitrate Urine Bilirubin Urine Urobilinogen Ur Leukocyte Esterase Urine WBC (Auto) B-Hydroxybutyrate Influenza Typ A,B (EIA) Negative for flu a/b Assessment & Plan - Assessment and Plan (Free Text) Assessment: 62 year old male with past medical history of asthma, COPD, HTN, CHIP, DM, and ID (2016) w/ cardiac stent presenting to the ED with worsening shortness of breath and productive cough with whitish yellow sputum since last . Plan: Shortness of breath, likely 2/2 acute bronchitis in setting of uncontrolled diabetes -s/p albuterol x1, duoneb, and solumedrol 125 x1 in ED -chronic irritating recurrent cough, clinically less likely asthma or COPD exacerbation -pt states symptoms only began coming about 6-7 years ago; no previous hx of asthma or COPD, not a smoker -on previous admission (04/2018), was recommended to f/u with ENT for possible laryngoscopy but never did -polypharmacy on moth exterminator basis; try to reduce number of meds -CXR: no active disease -flu negative -NS @100cc/hr -O2 via NC prn -Ventolin 2 puff q4 INH [place] -Ventolin 1 puff q6 INH PRN -Pulmicort 0.5 mg INH q12 [place] -Singulair 10 mg PO HS -Doxycycline 100 mg PO q12 [place] Uncontrolled DM -weight loss likely due to chronic uncontrolled sugar levels -BG 651 on admission -s/p 10 units Novolin in ED -patient states he takes ~75 units insulin total at home during course of day -Lantus 35 units SC HS -Novolog 13 units SC TIDAC -ISS medium -continue to monitor, adjust coverage as needed -accuchecks ACHS -hypoglycemic protocol Intermittent chest pain, GUZMAN, orthopnea -no reported history of CHF -BNP wnl -f/u trop -EKG: NSR @ 88bpm -CXR: no active disease -ECHO (03/2018): EF 60%, normal biventricular function. No gross valvular abnormality or pericardial effusion Hx of HTN -restart home meds -Hydralazine 50 mg PO daily -Toprol XL 50 mg PO daily Hx of CAD w/stent -ASA 81 mg PO daily -Plavix 75 mg PO daily -Crestor 5 mg PO HS -Hydralazine 50 mg PO BID -Metoprolol 50 mg PO daily PPx, Diet, Disposition DVT ppx: scds, lovenox GI ppx: protonix Diet: diabetic HHD PT on board Case discussed with Dr. Claudia López DO, PGY-1 <Derrick Taylor P - Last Filed: 09/20/18 08:36> Results - Vital Signs Recent Vital Signs: Last Vital Signs Temp 98 F 09/20/18 07:50 Pulse 88 09/20/18 07:50 Resp 20 09/20/18 07:50 BP 133/77 09/20/18 07:50 Pulse Ox 95 09/20/18 07:50 - Labs Result Diagrams: 09/20/18 07:34 09/20/18 07:34 Labs: Laboratory Results - last 24 hr 09/19/18 09/19/18 09/19/18 14:34 14:39 14:47 WBC RBC Hgb Hct MCV MCH MCHC RDW Plt Count MPV Neut % (Auto) Lymph % (Auto) [place] % (Auto) Eos % (Auto) Baso % (Auto) Neut # (Auto) Lymph # (Auto) [place] # (Auto) Eos # (Auto) Baso # (Auto) pO2 VBG pH VBG pCO2 VBG HCO3 VBG Total CO2 VBG O2 Sat (Calc) VBG Base Excess VBG Potassium Glucose Lactate Crit Value Called To Crit Value Called By Crit Value Read Back Blood Gas Notified Time Sodium 127 L Potassium 3.6 Chloride 89 L Carbon Dioxide 24 Anion Gap 18 BUN 14 Creatinine 0.7 L Est GFR ( Amer) > 60 Est GFR (Non-Af Amer) > 60 POC Glucose (mg/dL) > 500 H* Random Glucose 651 H* D Hemoglobin A1c Calcium 8.7 Phosphorus Magnesium Total Bilirubin 0.5 AST 16 L D ALT 20 L D Alkaline Phosphatase 129 H D Troponin I NT-Pro-B Natriuret Pep 394 Total Protein 7.0 Albumin 4.2 Globulin 2.9 Albumin/Globulin Ratio 1.4 Venous Blood Potassium Urine Color Straw Urine Clarity Clear Urine pH 5.0 Ur Specific [place] 1.028 Urine Protein Negative Urine Glucose (UA) 3+ H Urine Ketones Negative Urine Blood Negative Urine Nitrate Negative Urine Bilirubin Negative Urine Urobilinogen Normal Ur Leukocyte Esterase Neg Urine WBC (Auto) < 1 B-Hydroxybutyrate 0.11 Influenza Typ A,B (EIA) 09/19/18 09/19/18 09/19/18 14:47 17:16 18:45 WBC 10.0 RBC 4.91 Hgb 14.4 Hct 42.9 MCV 87.3 MCH 29.3 MCHC 33.6 RDW 13.2 Plt Count 309 MPV 8.0 Neut % (Auto) 76.4 H Lymph % (Auto) 17.3 L [place] % (Auto) 5.5 Eos % (Auto) 0.1 Baso % (Auto) 0.7 Neut # (Auto) 7.6 H Lymph # (Auto) 1.7 [place] # (Auto) 0.5 Eos # (Auto) 0.0 Baso # (Auto) 0.1 pO2 VBG pH VBG pCO2 VBG HCO3 VBG Total CO2 VBG O2 Sat (Calc) VBG Base Excess VBG Potassium Glucose Lactate Crit Value Called To Crit Value Called By Crit Value Read Back Blood Gas Notified Time Sodium Potassium Chloride Carbon Dioxide Anion Gap BUN Creatinine Est GFR ( Amer) Est GFR (Non-Af Amer) POC Glucose (mg/dL) 445 H* Random Glucose Hemoglobin A1c Calcium Phosphorus Magnesium Total Bilirubin AST ALT Alkaline Phosphatase Troponin I NT-Pro-B Natriuret Pep Total Protein Albumin Globulin Albumin/Globulin Ratio Venous Blood Potassium Urine Color Urine Clarity Urine pH Ur Specific [place] Urine Protein Urine Glucose (UA) Urine Ketones Urine Blood Urine Nitrate Urine Bilirubin Urine Urobilinogen Ur Leukocyte Esterase Urine WBC (Auto) B-Hydroxybutyrate Influenza Typ A,B (EIA) Negative for flu a/b 09/19/18 09/19/18 09/20/18 21:23 22:05 02:06 WBC RBC Hgb Hct MCV MCH MCHC RDW Plt Count MPV Neut % (Auto) Lymph % (Auto) [place] % (Auto) Eos % (Auto) Baso % (Auto) Neut # (Auto) Lymph # (Auto) [place] # (Auto) Eos # (Auto) Baso # (Auto) pO2 51 VBG pH 7.36 VBG pCO2 35 L VBG HCO3 20.7 VBG Total CO2 20.9 L VBG O2 Sat (Calc) 91.7 H VBG Base Excess -4.9 L VBG Potassium 3.2 L Glucose 531 H* Lactate 1.9 Crit Value Called To dionne Rincon/rn Crit Value Called By Ashley goode rcp Crit Value Read Back Y Blood Gas Notified Time 2212 Sodium 138.0 Potassium Chloride 103.0 Carbon Dioxide Anion Gap BUN Creatinine Est GFR ( Amer) Est GFR (Non-Af Amer) POC Glucose (mg/dL) > 500 H* 440 H* Random Glucose Hemoglobin A1c Calcium Phosphorus Magnesium Total Bilirubin AST ALT Alkaline Phosphatase Troponin I NT-Pro-B Natriuret Pep Total Protein Albumin Globulin Albumin/Globulin Ratio Venous Blood Potassium 3.2 L Urine Color Urine Clarity Urine pH Ur Specific [place] Urine Protein Urine Glucose (UA) Urine Ketones Urine Blood Urine Nitrate Urine Bilirubin Urine Urobilinogen Ur Leukocyte Esterase Urine WBC (Auto) B-Hydroxybutyrate Influenza Typ A,B (EIA) 09/20/18 09/20/18 09/20/18 07:34 07:34 07:34 WBC 12.8 H RBC 4.81 Hgb 13.9 Hct 41.9 MCV 87.1 MCH 29.0 MCHC 33.3 RDW 13.1 Plt Count 317 MPV 7.7 Neut % (Auto) 83.2 H Lymph % (Auto) 13.1 L [place] % (Auto) 3.0 Eos % (Auto) 0.1 Baso % (Auto) 0.6 Neut # (Auto) 10.7 H Lymph # (Auto) 1.7 [place] # (Auto) 0.4 Eos # (Auto) 0.0 Baso # (Auto) 0.1 pO2 VBG pH VBG pCO2 VBG HCO3 VBG Total CO2 VBG O2 Sat (Calc) VBG Base Excess VBG Potassium Glucose Lactate Crit Value Called To Crit Value Called By Crit Value Read Back Blood Gas Notified Time Sodium 133 Potassium 4.2 Chloride 97 L Carbon Dioxide 25 Anion Gap 15 BUN 16 Creatinine 0.6 L Est GFR ( Amer) > 60 Est GFR (Non-Af Amer) > 60 POC Glucose (mg/dL) Random Glucose 362 H D Hemoglobin A1c Calcium 8.6 Phosphorus 3.6 Magnesium 2.3 Total Bilirubin 0.8 AST 16 L ALT 16 L Alkaline Phosphatase 107 Troponin I < 0.0120 NT-Pro-B Natriuret Pep Total Protein 6.8 Albumin 3.8 Globulin 3.0 Albumin/Globulin Ratio 1.3 Venous Blood Potassium Urine Color Urine Clarity Urine pH Ur Specific [place] Urine Protein Urine Glucose (UA) Urine Ketones Urine Blood Urine Nitrate Urine Bilirubin Urine Urobilinogen Ur Leukocyte Esterase Urine WBC (Auto) B-Hydroxybutyrate Influenza Typ A,B (EIA) 09/20/18 09/20/18 07:34 07:34 WBC RBC Hgb Hct MCV MCH MCHC RDW Plt Count MPV Neut % (Auto) Lymph % (Auto) [place] % (Auto) Eos % (Auto) Baso % (Auto) Neut # (Auto) Lymph # (Auto) [place] # (Auto) Eos # (Auto) Baso # (Auto) pO2 VBG pH VBG pCO2 VBG HCO3 VBG Total CO2 VBG O2 Sat (Calc) VBG Base Excess VBG Potassium Glucose Lactate Crit Value Called To Crit Value Called By Crit Value Read Back Blood Gas Notified Time Sodium Potassium Chloride Carbon Dioxide Anion Gap BUN Creatinine Est GFR ( Amer) Est GFR (Non-Af Amer) POC Glucose (mg/dL) 354 H Random Glucose Hemoglobin A1c 13.5 H D Calcium Phosphorus Magnesium Total Bilirubin AST ALT Alkaline Phosphatase Troponin I NT-Pro-B Natriuret Pep Total Protein Albumin Globulin Albumin/Globulin Ratio Venous Blood Potassium Urine Color Urine Clarity Urine pH Ur Specific [place] Urine Protein Urine Glucose (UA) Urine Ketones Urine Blood Urine Nitrate Urine Bilirubin Urine Urobilinogen Ur Leukocyte Esterase Urine WBC (Auto) B-Hydroxybutyrate Influenza Typ A,B (EIA) Attending/Attestation - Attestation I have personally seen and examined this patient.: Yes I have fully participated in the care of the patient.: Yes I have reviewed all pertinent clinical information: Yes Notes (Text): 09/20/18 08:31 Bronchitis Uncontrolled diabetes Weight loss likely form above about 50lbs in last few months Chronic cough still need evaluation from ENT HTN Plan Nebs, inhaled steroid, doxycycline IVF Change insulin to lantus and humlog tid as patient is reliable to learn start with 75 units his home dose and sliding scale Hgba1c GI/DVt prophylaxis See orders for detail.
[2018-09-19] MEDS ORDERED: (Novolin R) Insulin Human Regular 100 units/ml vial SC SCH (22:00)
[2018-09-19] MEDS: Sodium Chloride 0.9% 1,000 ML IV SCH (22:02)
[2018-09-19 22:11] LABS: VENOUS BLOOD GAS BASE EXCESS -4.9 mmol/L (0.0-2.0); VENOUS BLOOD GAS PCO2 35 mmHg (40-60); VENOUS BLOOD GAS PO2 51 mm/Hg (30-55); VENOUS BLOOD PH 7.36 (7.32-7.43)
[2018-09-19] MEDS ORDERED: Albuterol HFA 90 mcg/actuation (8 g) INH PRN (23:40)
[2018-09-20] MEDS: Albuterol HFA 90 mcg/actuation (8 g) INH SCH ×6 (00:02→19:00)
[2018-09-20] MEDS: (Lantus) Insulin Glargine, Recombinant SC SCH ×2 (00:17→21:55)
[2018-09-20] MEDS: Budesonide 0.5 mg/2 ml Inhal Susp UD INH SCH ×2 (07:30→19:00)
[2018-09-20 07:42] LABS: BASO # 0.1 K/uL (0.0-0.2); BASO % 0.6 % (0.0-2.0); EOS % 0.1 % (0.0-4.0); HEMOGLOBIN 13.9 g/dL (12.0-18.0); LYMPH # 1.7 K/uL (1.0-4.3); LYMPH % 13.1 % (20.0-40.0); MEAN CELL VOLUME 87.1 fL (80.0-94.0); MEAN CORPUSCULAR HGB CONC 33.3 g/dL (33.0-37.0); MEAN PLATELET VOLUME 7.7 fL (7.2-11.7); MONO # 0.4 K/uL (0.0-0.8); NEUT # 10.7 K/uL (1.8-7.0); NEUT % 83.2 % (50.0-75.0); RBC 4.81 Mil/uL (4.40-5.90); RED CELL DISTRIBUTION WIDTH 13.1 % (11.5-14.5); WHITE BLOOD COUNT 12.8 K/uL (4.8-10.8)
--- NOTE | 2018-09-20 07:45 | CP.PCM.PN ---
Subjective - Date & Time of Evaluation Date of Evaluation: 09/20/18 Time of Evaluation: 07:44 - Subjective Subjective: PGY-1 Gissell Carlton D.O. Medicine progress note for Dr. Murillo's service: Patient was seen and examined this morning. He states that his breathing is currently improved, but he gets sudden onset of SOB and cough. Patient has had a cough for many years, but it worsened over the past few days. Patient says he went to see him PMD, but outpatient treatment did not help. Patient was admitted for the same symptoms in the past. Patient says he complied with all medications and outpatient follow-up, but he cannot recall specifics. He states he uses O2 via NC at night when needed. Patient also says that when he checks his glucose at home, it is in the 400s. He reports previously attending diabetes education classes at the hospital, but then they stopped holding them. He denies fevers and chills. Denies nausea and vomiting. Presently, he denies SOB and cough. Objective - Vital Signs/Intake and Output Vital Signs (last 24 hours): Temp Pulse Resp BP Pulse Ox 98.0 F 87 20 145/88 96 09/20/18 00:40 09/20/18 00:40 09/20/18 00:40 09/20/18 00:40 09/20/18 00:40 - Medications Medications: Current Medications Albuterol (Ventolin Hfa 90 Mcg/Actuation (8 G)) 1 puff INH RQ4 PRN PRN Reason: Shortness of Breath Albuterol (Ventolin Hfa 90 Mcg/Actuation (8 G)) 2 puff INH RQ4 [place] Last Admin: 09/20/18 04:03 Dose: Not Given Aspirin (Aspirin Chewable) 81 mg PO DAILY [facility] Budesonide (Pulmicort Respules) 0.5 mg INH RQ12 [facility] Clopidogrel Bisulfate (Plavix) 75 mg PO DAILY [facility] Dextrose (Dextrose 50% Inj) 0 ml IV STAT PRN; Protocol PRN Reason: Hypoglycemia Protocol Dextrose (Glutose 15) 0 gm PO ONCE PRN; Protocol PRN Reason: Hypoglycemia Protocol Doxycycline Hyclate (Doryx) 100 mg PO Q12H [place]; Protocol Last Admin: 09/20/18 00:17 Dose: 100 mg Enoxaparin Sodium (Lovenox) 40 mg SC DAILY [facility] Glucagon (Glucagen Diagnostic Kit) 0 mg IM STAT PRN; Protocol PRN Reason: Hypoglycemia Protocol Hydralazine HCl (Apresoline) 50 mg PO BID [facility] Dextrose (Dextrose 5% In Water 1000 Ml) 1,000 mls @ 0 mls/hr IV .Q0M PRN; Protocol PRN Reason: Hypoglycemia Protocol Sodium Chloride (Sodium Chloride 0.9%) 1,000 mls @ 100 mls/hr IV .Q10H [facility] Last Admin: 09/19/18 22:02 Dose: 100 mls/hr Insulin Aspart (Novolog) 13 unit SC TIDAC [facility] Insulin Glargine (Lantus) 35 unit SC HS [facility] Last Admin: 09/20/18 00:17 Dose: 35 units Insulin Human Regular (Novolin R) 0 unit SC ACHS [facility]; Protocol Metoprolol Succinate (Toprol Xl) 50 mg PO DAILY [facility] Montelukast Sodium (Singulair) 10 mg PO HS [facility] Pantoprazole Sodium (Protonix Inj) 40 mg IVP DAILY [facility] Rosuvastatin Calcium (Crestor) 5 mg PO HS [facility] Last Admin: 09/19/18 22:00 Dose: 5 mg - Labs Labs: 09/20/18 07:34 09/19/18 14:47 - Head Exam Head Exam: ATRAUMATIC, NORMAL INSPECTION - Eye Exam Additional comments: L eye fixed in medially, R EOMI - ENT Exam ENT Exam: Mucous Membranes Moist - Neck Exam Neck Exam: Normal Inspection - Respiratory Exam Respiratory Exam: Clear to Ausculation Bilateral, NORMAL BREATHING PATTERN. absent: Accessory Muscle Use, Respiratory Distress - Cardiovascular Exam Cardiovascular Exam: REGULAR RHYTHM, +S1, +S2 - GI/Abdominal Exam GI & Abdominal Exam: Soft. absent: Distended, Tenderness - Extremities Exam Extremities Exam: Normal Inspection - Back Exam Back Exam: NORMAL INSPECTION - Neurological Exam Neurological Exam: Alert, Awake, Oriented x3 - Psychiatric Exam Psychiatric exam: Normal Affect, Normal Mood - Skin Skin Exam: Dry, Normal Color, Warm Assessment and Plan - Assessment and Plan (Free Text) Assessment: Patient is a 62 yo male with a history of CAD ([place] with stent), obesity, HTN, T2DM, asthma/COPD, and CHIP who presented with SOB and cough. He also endorses an intentional 50 lb weight loss in 4 months (hospital records only indicated about 8 lb loss). Patient's glucose is very poorly controlled. His A1c is 13.5. Patient says he is compliant with all his medications. Plan: Bronchitis with underlying asthma/COPD - CXR: no active disease - Flu negative - Albuterol Q4H [place], Q4H PRN - Pulmicort Q12H - Singular 10 mg PO QHS - Doxycycline 100 mg PO Q12H- started 09/19 - PT Type 2 diabetes mellitus, chronic, poorly controlled - A1c 13.5 - Accuchecks ACHS - BG 300s->500 - Hypoglycemia protocol - Lantus 35 units SC QHS - Aspart 13 units SC TIDAC - ISS - Metformin 1000 mg PO BID - Diabetic diet - family educator consult Coronary artery disease- s/p RI with stent in 2015 - Echo (03/2018): EF 60%, normal biventricular function. No gross valvular abnormality or pericardial effusion - Heart healthy diet - ASA 81 mg PO daily - Plavix 75 mg PO daily - Crestor 5 mg PO QHS Hypertension, chronic - Vitals Q6H - 2g Na restriction - Hydralazine 50 mg PO BID - Metoprolol 50 mg PO daily Obstructive sleep apnea - Recent sleep study per patient - No CPAP/BiPAP at night, only O2 via NC PRN GERD - Protonix 40 mg PO daily Obesity - Educated about diet and exercise Ppx: VTE: SCDs, Lovenox 40 mg SC daily GI: Protonix 40 mg PO daily Code status: full code Case discussed with attending, Dr. Murillo.
[2018-09-20 08:00] LABS: ALB/GLOB RATIO 1.3 (1.0-2.1); ALBUMIN 3.8 g/dL (3.5-5.0); ALT/SGPT 16 U/L (21-72); AST/SGOT 16 U/L (17-59); BLOOD UREA NITROGEN 16 mg/dL (9-20); CALCIUM 8.6 mg/dl (8.6-10.4); GFR NON-AFRICAN AMERICAN > 60
[2018-09-20] MEDS ORDERED: Fluticasone-Vilanterol 200/25mcg Diskus INH SCH (08:00)
[2018-09-20] MEDS: (Novolog) Insulin Aspart, Recombinant 100 u/ml 10 ml vial SC SCH ×3 (08:03→17:47)
[2018-09-20] MEDS: (Novolin R) Insulin Human Regular 100 units/ml vial SC SCH ×4 (08:03→21:55)
[2018-09-20] MEDS: Metoprolol Succinate 50 mg XL Tab PO SCH (09:55)
[2018-09-20] MEDS: Enoxaparin 40 mg Syringe SC SCH (09:55)
[2018-09-20] MEDS: Sodium Chloride 0.9% 1,000 ML IV SCH (09:56)
--- NOTE | 2018-09-20 11:28 | CARD ---
APPROVED REPORT Date of service: 09/19/2018 EKG Measurement Heart [id number] MD [id number] <Conclusion> Normal sinus rhythm Normal ECG
[2018-09-21] MEDS: Albuterol HFA 90 mcg/actuation (8 g) INH SCH ×5 (00:08→16:44)
[2018-09-21] MEDS: Budesonide 0.5 mg/2 ml Inhal Susp UD INH SCH (07:30)
[2018-09-21] MEDS: (Novolin R) Insulin Human Regular 100 units/ml vial SC SCH ×2 (07:47→11:19)
[2018-09-21] MEDS: (Novolog) Insulin Aspart, Recombinant 100 u/ml 10 ml vial SC SCH ×2 (07:49→11:18)
--- NOTE | 2018-09-21 07:55 | CP.PCM.DIS ---
Provider - Provider Date of Admission: 09/19/18 17:31 Attending physician: John Murillo MD Primary care physician: Shiva Frye Consults: 09/20/18 07:53 Diabetic Education Referral Routine Comment: Physician Instructions: Reason For Exam: poorly controlled diabetes, obesity Time Spent in preparation of Discharge (in minutes): 45 Diagnosis - Discharge Diagnosis (1) Bronchitis Status: Chronic Priority: High (2) Poorly controlled diabetes mellitus Status: Chronic Priority: High (3) Presence of stent in coronary artery in patient with coronary artery disease Status: Chronic Priority: Medium (4) HTN (hypertension) Status: Chronic Priority: Medium (5) CHIP (obstructive sleep apnea) Status: Chronic Priority: Low (6) GERD (gastroesophageal reflux disease) Status: Chronic Priority: Low (7) Obesity (BMI 30-39.9) Status: Chronic Priority: Low Hospital Course - Lab Results Lab Results: Most Recent Lab Values WBC 12.8 K/uL (4.8-10.8) H 09/20/18 07:34 RBC 4.81 Mil/uL (4.40-5.90) 09/20/18 07:34 Hgb 13.9 g/dL (12.0-18.0) 09/20/18 07:34 Hct 41.9 % (35.0-51.0) 09/20/18 07:34 MCV 87.1 fL (80.0-94.0) 09/20/18 07:34 MCH 29.0 pg (27.0-31.0) 09/20/18 07:34 MCHC 33.3 g/dL (33.0-37.0) 09/20/18 07:34 RDW 13.1 % (11.5-14.5) 09/20/18 07:34 Plt Count 317 K/uL (130-400) 09/20/18 07:34 MPV 7.7 fL (7.2-11.7) 09/20/18 07:34 Neut % (Auto) 83.2 % (50.0-75.0) H 09/20/18 07:34 Lymph % (Auto) 13.1 % (20.0-40.0) L 09/20/18 07:34 [place] % (Auto) 3.0 % (0.0-10.0) 09/20/18 07:34 Eos % (Auto) 0.1 % (0.0-4.0) 09/20/18 07:34 Baso % (Auto) 0.6 % (0.0-2.0) 09/20/18 07:34 Neut # (Auto) 10.7 K/uL (1.8-7.0) H 09/20/18 07:34 Lymph # (Auto) 1.7 K/uL (1.0-4.3) 09/20/18 07:34 Norman # (Auto) 0.4 K/uL (0.0-0.8) 09/20/18 07:34 Eos # (Auto) 0.0 K/uL (0.0-0.7) 09/20/18 07:34 Baso # (Auto) 0.1 K/uL (0.0-0.2) 09/20/18 07:34 pO2 51 mm/Hg (30-55) 09/19/18 22:05 VBG pH 7.36 (7.32-7.43) 09/19/18 22:05 VBG pCO2 35 mmHg (40-60) L 09/19/18 22:05 VBG HCO3 20.7 mmol/L 09/19/18 22:05 VBG Total CO2 20.9 mmol/L (22-28) L 09/19/18 22:05 VBG O2 Sat (Calc) 91.7 % (40-65) H 09/19/18 22:05 VBG Base Excess -4.9 mmol/L (0.0-2.0) L 09/19/18 22:05 VBG Potassium 3.2 mmol/L (3.6-5.2) L 09/19/18 22:05 Sodium 138.0 mmol/l (132-148) 09/19/18 22:05 Chloride 103.0 mmol/L (98-107) 09/19/18 22:05 Glucose 531 mg/dl (75-110) H* 09/19/18 22:05 Lactate 1.9 mmol/L (0.7-2.1) 09/19/18 22:05 Crit Value Called To dionne Rincon/neeraj 09/19/18 22:05 Crit Value Called By Ashley goode rcp 09/19/18 22:05 Crit Value Read Back Y 09/19/18 22:05 Blood Gas Notified Time 221109/19/18 22:05 Sodium 133 mmol/L (132-148) 09/20/18 07:34 Potassium 4.2 mmol/L (3.6-5.2) 09/20/18 07:34 Chloride 97 mmol/L (98-107) L 09/20/18 07:34 Carbon Dioxide 25 mmol/L (22-30) 09/20/18 07:34 Anion Gap 15 (10-20) 09/20/18 07:34 BUN 16 mg/dL (9-20) 09/20/18 07:34 Creatinine 0.6 mg/dL (0.8-1.5) L 09/20/18 07:34 Est GFR ( Amer) > 60 09/20/18 07:34 Est GFR (Non-Af Amer) > 60 09/20/18 07:34 POC Glucose (mg/dL) 229 mg/dL (65-110) H 09/21/18 07:17 Random Glucose 362 mg/dL (75-110) H D 09/20/18 07:34 Hemoglobin A1c 13.5 % (4.2-6.5) H D 09/20/18 07:34 Calcium 8.6 mg/dl (8.6-10.4) 09/20/18 07:34 Phosphorus 3.6 mg/dL (2.5-4.5) 09/20/18 07:34 Magnesium 2.3 mg/dL (1.6-2.3) 09/20/18 07:34 Total Bilirubin 0.8 mg/dL (0.2-1.3) 09/20/18 07:34 AST 16 U/L (17-59) L 09/20/18 07:34 ALT 16 U/L (21-72) L 09/20/18 07:34 Alkaline Phosphatase 107 U/L (38-126) 09/20/18 07:34 Troponin I < 0.0120 ng/mL (0.00-0.120) 09/20/18 07:34 NT-Pro-B Natriuret Pep 394 pg/mL (0-900) 09/19/18 14:47 Total Protein 6.8 g/dL (6.3-8.3) 09/20/18 07:34 Albumin 3.8 g/dL (3.5-5.0) 09/20/18 07:34 Globulin 3.0 gm/dL (2.2-3.9) 09/20/18 07:34 Albumin/Globulin Ratio 1.3 (1.0-2.1) 09/20/18 07:34 Venous Blood Potassium 3.2 mmol/L (3.6-5.2) L 09/19/18 22:05 Urine Color Straw (YELLOW) 09/19/18 14:39 Urine Clarity Clear (Clear) 09/19/18 14:39 Urine pH 5.0 (5.0-8.0) 09/19/18 14:39 Ur Specific [place] 1.028 (1.003-1.030) 09/19/18 14:39 Urine Protein Negative mg/dL (NEGATIVE) 09/19/18 14:39 Urine Glucose (UA) 3+ mg/dL (Normal) H 09/19/18 14:39 Urine Ketones Negative mg/dL (NEGATIVE) 09/19/18 14:39 Urine Blood Negative (NEGATIVE) 09/19/18 14:39 Urine Nitrate Negative (NEGATIVE) 09/19/18 14:39 Urine Bilirubin Negative (NEGATIVE) 09/19/18 14:39 Urine Urobilinogen Normal mg/dL (0.2-1.0) 09/19/18 14:39 Ur Leukocyte Esterase Neg [place]/uL (Negative) 09/19/18 14:39 Urine WBC (Auto) < 1 /hpf (0-5) 09/19/18 14:39 B-Hydroxybutyrate 0.11 mM (0.02-0.27) 09/19/18 14:47 Influenza Typ A,B (EIA) Negative for flu a/b (NEGATIVE) 09/19/18 18:45 - Hospital Course Hospital Course: Patient is a 62 year old obese male with past medical history of HTN, CHIP, DM, and [place] (2016) w/ cardiac stent presenting to the ED with worsening productive cough with whitish yellow sputum and associated shortness of breath since last . Patient states that he uses his ventolin inhaler on a regular basis 2-3x/day but it has not been helping. Patient was seen by his PMD, Dr. Shiva Sanchez, 2 days ago for his symptoms and given a Z-pack, Medrol dose pack, tessalon perles, and nebs which did not provide any significant improvement. He was prompted to come to the ED for further evaluation. Patient has had chronic recurrent cough for last 6-7 years, has been seen in the past for similar complaints. Of note, patient states he has had ~50 lbs weight loss since last admission in April. He states it has been intentional--"watching what I eat". Patient also endorses uncontrolled BG levels since that time typically running in high 400s. He has polyphagia at time of examination. He complaints of some dyspnea on exertion and orthopnea. He also complains of intermittent chest pain earlier in the week but no current chest pain or palpitations. No new sick contacts at home or recent travel. He denies fevers/chills, headaches, dizziness, abdominal pain, nausea/vomiting/diarrhea/constipation, dysuria, or changes in stool. CXR did not show active disease. Patient was continued on his home COPD medications. He was also started on Doxy. Patient's glucose was poorly controlled. A1c 13.5. Patient was started on a different insulin regimen. Patient was seen by health educator and counseled on diet and medication compliance. Upon discharge, patient was comfortable and saturating well on room air. He denied cough and SOB. Patient has an appointment with an packing shed supervisor next week. Discharge Exam - Head Exam Head Exam: ATRAUMATIC, NORMAL INSPECTION - Eye Exam Eye Exam: Normal appearance Additional comments: L eye fixed medially - ENT Exam ENT Exam: Mucous Membranes Moist - Neck Exam Neck exam: Normal Inspection - Respiratory Exam Respiratory Exam: Clear to PA & Lateral, NORMAL BREATHING PATTERN, UNREMARKABLE. absent: Wheezes, Respiratory Distress - Cardiovascular Exam Cardiovascular Exam: REGULAR RHYTHM, +S1, +S2 - GI/Abdominal Exam GI & Abdominal Exam: Soft, Unremarkable. absent: Tenderness - Extremities Exam Extremities exam: normal inspection - Neurological Exam Neurological exam: Alert, Normal Gait, Oriented x3 - Psychiatric Exam Psychiatric exam: Normal Affect, Normal Mood - Skin Skin Exam: Dry, Normal Color, Warm Discharge Plan - Discharge Medications Prescriptions: Doxycycline Hyclate [Doryx] 100 mg PO Q12H #10 cap - Follow Up Plan Condition: IMPROVED Disposition: HOME/ ROUTINE Patient education suggested?: Yes Instructions: Exacerbation of COPD (DC), Doxycycline Additional Instructions: Follow-up with your primary care provider, Dr. Frye, within 3-5 days of discharge. Keep you appointment next week with the packing shed supervisor. They will adjust your diabetes medications. Bring a blood sugar log with you. Take Doxycycline, an antibiotic, for a total of 5 days. Continue all other home medications as before your hospitalization. If symptoms recur, return to the nearest emergency department. Referrals: Shiva Frye MD [Staff Provider] -
[2018-09-21 08:04] LABS: BASO % 0.4 % (0.0-2.0); EOS % 0.4 % (0.0-4.0); HEMOGLOBIN 13.7 g/dL (12.0-18.0); LYMPH # 3.7 K/uL (1.0-4.3); LYMPH % 37.7 % (20.0-40.0); MEAN CELL VOLUME 87.6 fL (80.0-94.0); MEAN CORPUSCULAR HEMOGLOBIN 29.5 pg (27.0-31.0); MEAN CORPUSCULAR HGB CONC 33.7 g/dL (33.0-37.0); MEAN PLATELET VOLUME 7.8 fL (7.2-11.7); MONO # 0.6 K/uL (0.0-0.8); MONO % 6.4 % (0.0-10.0); NEUT # 5.4 K/uL (1.8-7.0); NEUT % 55.1 % (50.0-75.0); RBC 4.65 Mil/uL (4.40-5.90); RED CELL DISTRIBUTION WIDTH 13.4 % (11.5-14.5); WHITE BLOOD COUNT 9.8 K/uL (4.8-10.8)
[2018-09-21 08:06] VITALS: BP 143/83; PULSE 67; TEMP 98.5; O2SAT 98
[2018-09-21 08:21] LABS: ALB/GLOB RATIO 1.3 (1.0-2.1); ALBUMIN 3.4 g/dL (3.5-5.0); ALT/SGPT 63 U/L (21-72); AST/SGOT 49 U/L (17-59); BLOOD UREA NITROGEN 18 mg/dL (9-20); CALCIUM 8.2 mg/dl (8.6-10.4); GFR NON-AFRICAN AMERICAN > 60
[2018-09-21] MEDS: Metoprolol Succinate 50 mg XL Tab PO SCH (09:59)
[2018-09-21] MEDS: Enoxaparin 40 mg Syringe SC SCH (10:00)
== END 2018-09-21 17:19 | disposition home or self-care (01) | DRG 192 ==
LOC: C.ER 13:43 → EDBD 13:43 → C.9E 17:31 → C.3T 17:48
PROVIDERS: ADMIT Hospitalist; ATTEND Hospitalist
DX: J44.0 Chronic obstructive pulmonary disease with (acute) lower respiratory infection (principal); J20.9 Acute bronchitis, unspecified; J44.1 Chronic obstructive pulmonary disease with (acute) exacerbation; E11.65 Type 2 diabetes mellitus with hyperglycemia; I10 Essential (primary) hypertension; I25.10 Atherosclerotic heart disease of native coronary artery without angina pectoris; G47.33 Obstructive sleep apnea (adult) (pediatric); E78.00 Pure hypercholesterolemia, unspecified; I25.2 Old myocardial infarction; K21.9 Gastro-esophageal reflux disease without esophagitis; Z95.5 Presence of coronary angioplasty implant and graft; H54.7 Unspecified visual loss; E66.9 Obesity, unspecified; Z68.35 Body mass index [BMI] 35.0-35.9, adult; Z79.4 Long term (current) use of insulin; Z82.49 Family history of ischemic heart disease and other diseases of the circulatory system; Z82.5 Family history of asthma and other chronic lower respiratory diseases; Z83.3 Family history of diabetes mellitus